=== PATIENT | female | born 1955 | race Caucasian/White ===

== ENCOUNTER 2024-02-04 00:52 | Emergency (ER) | payer MEDICARE ==
[2024-02-04] MEDS: ACETAMINOPHEN TAB 500 MG TAB PO STA (01:36)
[2024-02-04] MEDS: IBUPROFEN 600 MG TAB PO STA (01:37)
--- NOTE | 2024-02-04 01:40 | ED ---
General Adult HPI - General Chief complaint: Shortness of Breath Stated complaint: Anxiety Time Seen by Provider: 02/04/24 00:59 Source: patient, EMS, RN notes reviewed, old records reviewed Mode of arrival: EMS Limitations: no limitations - History of Present Illness Initial comments: 69-year-old female presents with cough and dyspnea after be exposed to cigarette smoke. Patient has history of asthma. She states earlier in the day she was exposed to tobacco smoke and this triggered a cough and dyspnea. Patient also reports mild headache which is typical of her usual headaches. Patient was transported by paramedics for evaluation. - Related Data Previous Rx's Medication Instructions Recorded Albuterol Nebulized [Ventolin 2.5 mg INHALATION Q4H #75 ml 02/04/24 Nebulized] Allergies Allergy/AdvReac Type Severity Reaction Status Date / Time naproxen Allergy Anaphylaxis Verified 02/04/24 01:24 Penicillins Allergy Anaphylaxis Verified 02/04/24 01:24 Sulfa (Sulfonamide Allergy Anaphylaxis Verified 02/04/24 01:24 Antibiotics) Review of Systems ROS Statement: Those systems with pertinent positive or pertinent negative responses have been documented in the HPI. ROS Other: All systems not noted in ROS Statement are negative. Past Medical History Past Medical History: Asthma, COPD History of Any Multi-Drug Resistant Organisms: None Reported Past Surgical History: No Surgical Hx Reported Past Psychological History: No Psychological Hx Reported Smoking Status: Never smoker Past Alcohol Use History: None Reported Past Drug Use History: None Reported General Exam Limitations: no limitations General appearance: alert, in no apparent distress Head exam: Present: atraumatic, normocephalic Eye exam: Present: normal appearance, PERRL ENT exam: Present: normal exam Neck exam: Present: normal inspection Respiratory exam: Present: normal lung sounds bilaterally. Absent: respiratory distress, wheezes Cardiovascular Exam: Present: regular rate, normal rhythm GI/Abdominal exam: Present: soft. Absent: distended, tenderness, guarding, rebound Extremities exam: Present: normal inspection, normal capillary refill Neurological exam: Present: alert, oriented X3 Psychiatric exam: Present: normal affect, normal mood Skin exam: Present: warm, dry, intact. Absent: cyanosis, diaphoretic Course Vital Signs 02/04/24 01:16 Temperature 98.6 F Pulse Rate 97 Respiratory 20 Rate Blood Pressure 145/80 O2 Sat by Pulse 97 Oximetry Medical Decision Making - Medical Decision Making Was pt. sent in by a medical professional or institution (CLEMENCIA Cade, FIBRE TECHNOLOGIST, urgent care, hospital, or group home...) When possible be specific @ -No Did you speak to anyone other than the patient for history (EMS, parent, family, police, friend...)? What history was obtained from this source @ -No Did you review nursing and triage notes (agree or disagree)? Why? @ -I reviewed and agree with nursing and triage notes Were old charts reviewed (outside hosp., previous admission, EMS record, old EKG, old radiological studies, urgent care reports/EKG's, group home records)? Report findings @ -No old charts were reviewed Differential Dyspnea: Coronary syndrome, arrhythmia, tamponade, asthma, COPD, pulmonary embolism, pneumonia, pneumothorax, pulmonary effusion, anaphylaxis, diabetic ketoacidosis, flailed chest, pulmonary contusion, diaphragmatic rupture, anemia, neuromuscular, this is not meant to be an all-inclusive list. EKG interpreted by me (3pts min.). @ -As above X-rays interpreted by me (1pt min.). @ -None done CT interpreted by me (1pt min.). @ -None done U/S interpreted by me (1pt. min.). @ -None done What testing was considered but not performed or refused? (CT, X-rays, U/S, labs)? Why? @ -None What meds were considered but not given or refused? Why? @ -None Did you discuss the management of the patient with other professionals (professionals i.e. CLEMENCIA Cade, FIBRE TECHNOLOGIST, lab, RT, psych nurse, dialysis social worker, payroll accountant, teacher, armoured corps officer, case fitter)? Give summary @ -No Was smoking cessation discussed for >3mins.? @ -No Was critical care preformed (if so, how long)? @ -No Were there social determinants of health that impacted care today? How? (Homelessness, low income, unemployed, alcoholism, drug addiction, transportation, low edu. Level, literacy, decrease access to med. care, detention, rehab)? @ -No Was there de-escalation of care discussed even if they declined (Discuss DNR or withdrawal of care, Hospice)? DNR status @ -No What co-morbidities impacted this encounter? (DM, HTN, Smoking, COPD, CAD, Cancer, CVA, ARF, Chemo, Hep., AIDS, mental health diagnosis, sleep apnea, morbid obesity)? @ -History of asthma Was patient admitted / discharged? Hospital course, mention meds given and route , prescriptions, significant lab abnormalities, going to OR and other pertinent info. @ -69-year-old female with cough after being exposed to tobacco . no wheezing on exam. No respiratory distress. No hypoxia. Patient requests breathing treatment which is administered in the emergency department. Patient monitored without clinical change. Patient will continue her albuterol nebulizer at home as needed. Undiagnosed new problem with uncertain prognosis? @ -No Drug Therapy requiring intensive monitoring for toxicity (Heparin, Nitro, Insulin, Cardizem)? @ -No Were any procedures done? @ -No Diagnosis/symptom? @ -[History of asthma Acute, or Chronic, or Acute on Chronic? @ -Chronic Uncomplicated (without systemic symptoms) or Complicated (systemic symptoms)? @ -Default Side effects of treatment? @ -No Exacerbation, Progression, or Severe Exacerbation? @ -No Poses a threat to life or bodily function? How? (Chest pain, USA, [place], pneumonia, PE, COPD, DKA, ARF, appy, cholecystitis, CVA, Diverticulitis, Homicidal, Suicidal, threat to staff... and all critical care pts) @ -Low risk at this time Disposition Clinical Impression: Asthma Disposition: HOME SELF-CARE Condition: Fair Instructions (If sedation given, give patient instructions): Asthma (ED) Prescriptions: Albuterol Nebulized [Ventolin Nebulized] 2.5 mg INHALATION Q4H #75 ml Is patient prescribed a controlled substance at d/c from ED?: No Referrals: None,Stated [Primary Care Provider] - 1-2 days Time of Disposition: 02:20
[2024-02-04] MEDS: IPRATROPIUM-ALBUTEROL 3 ML NEB INHALATION STA (01:55)
[2024-02-04 03:01] VITALS: BP 136/74; PULSE 99; RESP 18; TEMP 98.5
== END 2024-02-04 03:00 | disposition home or self-care (01) ==
LOC: EC 00:52
CPT/HCPCS: 94640; 99285

== ENCOUNTER 2024-02-21 23:46 | Inpatient (IN) | payer MEDICARE, OTHER ==
[2024-02-21 23:58] LABS: Glucose,Whole Blood 382 mg/dL (70-110)
--- NOTE | 2024-02-22 00:11 | ED ---
Altered Mental Status HPI - General Chief Complaint: Fall Stated Complaint: fall Time Seen by Provider: 02/21/24 23:56 Source: EMS, RN notes reviewed, old records reviewed Mode of arrival: EMS Limitations: no limitations - History of Present Illness Initial Comments: This is a 69-year-old female to the ER today for evaluation patient coming in for altered mental status with multiple recent falls and right-sided weakness patient is unable to provide history or complaints MD Complaint: altered mental status, confusion, decreased responsiveness, weakness -: days(s) Severity: moderate Consistency of Symptoms: waxing and waning Context: history of similar presentation Associated Symptoms: malaise, nausea/vomiting, weakness Treatments Prior to Arrival: IV fluid - Related Data Home Medications Medication Instructions Recorded Confirmed Albuterol Inhaler [Ventolin Hfa 1 - 2 puff INHALATION RT-Q4H PRN 02/22/24 02/22/24 Inhaler] Albuterol Nebulized [Ventolin 2.5 mg INHALATION RT-Q4H 02/22/24 02/22/24 Nebulized] Previous Rx's Medication Instructions Recorded Acetaminophen Tab [Tylenol] 325 mg PO Q6H PRN #30 tab 02/25/24 Aspirin 325 mg PO DAILY tab 02/25/24 Atorvastatin [Lipitor] 80 mg PO HS tab 02/25/24 Clopidogrel [Plavix] 75 mg PO DAILY tab 02/25/24 Heparin Sodium,Porcine (1 ml) 5,000 unit SQ Q12HR each 02/25/24 [Heparin Sodium] INSULIN ASPART (NovoLOG) [NovoLOG 0 unit SQ ACHS each 02/25/24 (formulary)] INSULIN ASPART (NovoLOG) [NovoLOG 6 unit SQ AC-TID each 02/25/24 (formulary)] Insulin Detemir (Levemir) [Levemir] 15 unit SQ DAILY@0700 each 02/25/24 metFORMIN HCL [Glucophage] 500 mg PO BID-W/MEALS tab 02/25/24 rOPINIRole HCL [Requip] 0.25 mg PO HS tab 02/25/24 Allergies Allergy/AdvReac Type Severity Reaction Status Date / Time naproxen Allergy Anaphylaxis Verified 02/21/24 23:56 Penicillins Allergy Anaphylaxis Verified 02/21/24 23:56 Sulfa (Sulfonamide Allergy Anaphylaxis Verified 02/21/24 23:56 Antibiotics) Tetracyclines Allergy Rash/Hives Verified 02/21/24 23:56 Review of Systems ROS Statement: Those systems with pertinent positive or pertinent negative responses have been documented in the HPI. ROS Other: All systems not noted in ROS Statement are negative. Past Medical History Past Medical History: Asthma, COPD History of Any Multi-Drug Resistant Organisms: None Reported Past Surgical History: No Surgical Hx Reported Past Psychological History: No Psychological Hx Reported Smoking Status: Never smoker Past Alcohol Use History: None Reported Past Drug Use History: None Reported General Exam - General Exam Comments Initial Comments: NIH 5 Limitations: altered mental status, physical limitation General appearance: alert, in no apparent distress Head exam: Present: atraumatic, normocephalic, normal inspection Eye exam: Present: normal appearance, PERRL, EOMI. Absent: scleral icterus, conjunctival injection, periorbital swelling ENT exam: Present: normal exam, mucous membranes moist Neck exam: Present: normal inspection. Absent: tenderness, meningismus, lymphadenopathy Respiratory exam: Present: normal lung sounds bilaterally. Absent: respiratory distress, wheezes, rales, rhonchi, stridor Cardiovascular Exam: Present: regular rate, normal rhythm, normal heart sounds. Absent: systolic murmur, diastolic murmur, rubs, gallop, clicks GI/Abdominal exam: Present: soft, normal bowel sounds. Absent: distended, tenderness, guarding, rebound, rigid Extremities exam: Present: normal inspection, full ROM, normal capillary refill. Absent: tenderness, pedal edema, joint swelling, calf tenderness Back exam: Present: normal inspection Neurological exam: Present: alert, oriented X3, CN II-XII intact Psychiatric exam: Present: normal affect, normal mood Skin exam: Present: warm, dry, intact, normal color. Absent: rash Course Vital Signs 02/21/24 02/22/24 23:50 03:15 Temperature 98.4 F Pulse Rate 87 91 Respiratory 18 18 Rate Blood Pressure 123/69 136/77 O2 Sat by Pulse 96 97 Oximetry - Reevaluation(s) Reevaluation #1: 02/22/24 00:12 Medical records reviewed Reevaluation #2: 02/22/24 03:01 Patient has persistent right sided deficits arm leg Reevaluation #3: 02/22/24 03:01 Patient informed of results and questions answered Reevaluation #4: Was pt. sent in by a medical professional or institution (CLEMENC[facility] Cade, CHIEF SUSTAINABILITY OFFICER, urgent care, hospital, or [facility]...) When possible be specific @ -no Did you speak to anyone other than the patient for history (EMS, parent, family, police, friend...)? What history was obtained from this source @ -no Did you review nursing and triage notes (agree or disagree)? Why? @ -agree Are old charts reviewed (outside hosp., previous admission, EMS record, old EKG, old radiological studies, urgent care reports/EKG's, [facility] records)? Report findings @ -yes Differential Diagnosis (chest pain, altered mental status, abdominal pain women, abdominal pain men, vaginal bleeding, weakness, fever, dyspnea, syncope, headache, dizziness, GI bleed, back pain, seizure, CVA, palpatations, mental health, musculoskeletal)? @ -prior EKG interpreted by me (3pts min.). @ -yes X-rays interpreted by me (1pt min.). @ -yes negative for acute disease CT interpreted by me (1pt min.). @ -yes positive stenosis vertebral artery U/S interpreted by me (1pt. min.). @ -no What testing was considered but not performed or refused? (CT, X-rays, U/S, labs)? Why? @ -none What meds were considered but not given or refused? Why? @ -none Did you discuss the management of the patient with other professionals (professionals i.e. CLEMENCIA Cade, CHIEF SUSTAINABILITY OFFICER, lab, RT, psych nurse, social work faculty member, side sawyer, teacher, water resources technical officer, pillowcase sewer)? Give summary @ -no Was smoking cessation discussed for >3mins.? @ -no Was critical care preformed (if so, how long)? @ -yes31 Were there social determinants of health that impacted care today? How? (Homelessness, low income, unemployed, alcoholism, drug addiction, transportation, low edu. Level, literacy, decrease access to med. care, half-way, rehab)? @ -none Was there de-escalation of care discussed even if they declined (Discuss DNR or withdrawal of care, Hospice)? DNR status @ -no What co-morbidities impacted this encounter? (DM, HTN, Smoking, COPD, CAD, Cancer, CVA, ARF, Chemo, Hep., AIDS, mental health diagnosis, sleep apnea, morbid obesity)? @ -none Was patient admitted / discharged? Hospital course, mention meds given and route, prescriptions, significant lab abnormalities, going to OR and other pertinent info. @ - 69 female will be admitted for acute CVA likely related to critical stenosis of vertebral artery Discharged Undiagnosed new problem with uncertain prognosis? @ -no Drug Therapy requiring intensive monitoring for toxicity (Heparin, Nitro, Insulin, Cardizem)? @ -no Were any procedures done? @ -no Diagnosis/symptom? @ -CVA Acute, or Chronic, or Acute on Chronic? @ -Acute Uncomplicated (without systemic symptoms) or Complicated (systemic symptoms)? @ -Complicated Side effects of treatment? @ -no Exacerbation, Progression, or Severe Exacerbation? @ -exacerbation Poses a threat to life or bodily function? How? (Chest pain, USA, [place], pneumonia, PE, COPD, DKA, ARF, appy, cholecystitis, CVA, Diverticulitis, Homicidal, Suicidal, threat to staff... and all critical care pts) @ -yes CVA Reevaluation #5: Differential Altered Mental Status: Hypoglycemia, DKA, hypercapnia, ETOH, overdose, CO poisoning, trauma, myxedema coma, HTN encephalopathy, infection, encephalitis, psychosis, intercranial hemorrhage, hepatic encephalopathy, meningitis, CVA, this is not meant to be an all-inclusive list - Consultations Consultation #1: Spoke with admitting physicians who agreed to admit this patient Medical Decision Making - Medical Decision Making 69 female will be admitted for acute CVA likely related to critical stenosis of vertebral artery - Lab Data Result diagrams: 02/24/24 07:24 02/24/24 07:24 Lab Results 02/21/24 02/22/24 02/22/24 Range/Units 23:56 00:15 00:15 WBC 6.4 (3.8-10.6) k/uL RBC 5.56 H (3.80-5.40) m/uL Hgb 15.5 (11.4-16.0) gm/dL Hct 44.2 (34.0-46.0) % MCV 79.5 L (80.0-100.0) fL MCH 27.9 (25.0-35.0) pg MCHC 35.0 (31.0-37.0) g/dL RDW 12.7 (11.5-15.5) % Plt Count 343 (150-450) k/uL MPV 8.4 Neutrophils % 76 % Lymphocytes % 17 % Monocytes % 6 % Eosinophils % 0 % Basophils % 0 % Neutrophils # 4.8 (1.3-7.7) k/uL Lymphocytes # 1.1 (1.0-4.8) k/uL Monocytes # 0.4 (0-1.0) k/uL Eosinophils # 0.0 (0-0.7) k/uL Basophils # 0.0 (0-0.2) k/uL PT 10.2 (10.0-12.5) sec INR 0.9 (<1.2) APTT 23.5 (22.0-30.0) sec Sodium (137-145) mmol/L Potassium (3.5-5.1) mmol/L Chloride (98-107) mmol/L Carbon Dioxide (22-30) mmol/L Anion Gap mmol/L BUN (7-17) mg/dL Creatinine (0.52-1.04) mg/dL Est GFR (CKD-EPI)AfAm (>60 ml/min/1.73 sqM) Est GFR (CKD-EPI)NonAf (>60 ml/min/1.73 sqM) Glucose (74-99) mg/dL POC Glucose (mg/dL) 382 H (70-110) mg/dL POC Glu Early Childhood Education Instructor ALEISHA Rimma Cespedes [address] Glu mg/dL mg/dL Hemoglobin A1c (<=6.0) % Plasma Lactic Acid Ronni (0.7-2.0) mmol/L Calcium (8.4-10.2) mg/dL Phosphorus (2.5-4.5) mg/dL Magnesium (1.6-2.3) mg/dL Total Bilirubin (0.2-1.3) mg/dL AST (14-36) U/L ALT (4-34) U/L Alkaline Phosphatase (38-126) U/L Troponin I (0.000-0.034) ng/mL NT-Pro-B Natriuret Pep pg/mL Total Protein (6.3-8.2) g/dL Albumin (3.5-5.0) g/dL TSH (0.465-4.680) mIU/L 02/22/24 02/22/24 02/22/24 Range/Units 00:15 00:15 00:15 WBC (3.8-10.6) k/uL RBC (3.80-5.40) m/uL Hgb (11.4-16.0) gm/dL Hct (34.0-46.0) % MCV (80.0-100.0) fL MCH (25.0-35.0) pg MCHC (31.0-37.0) g/dL RDW (11.5-15.5) % Plt Count (150-450) k/uL MPV Neutrophils % % Lymphocytes % % Monocytes % % Eosinophils % % Basophils % % Neutrophils # (1.3-7.7) k/uL Lymphocytes # (1.0-4.8) k/uL Monocytes # (0-1.0) k/uL Eosinophils # (0-0.7) k/uL Basophils # (0-0.2) k/uL PT (10.0-12.5) sec INR (<1.2) APTT (22.0-30.0) sec Sodium 136 L (137-145) mmol/L Potassium 3.8 (3.5-5.1) mmol/L Chloride 104 (98-107) mmol/L Carbon Dioxide 25 (22-30) mmol/L Anion Gap 7 mmol/L BUN 10 (7-17) mg/dL Creatinine 0.34 L (0.52-1.04) mg/dL Est GFR (CKD-EPI)AfAm >90 (>60 ml/min/1.73 sqM) Est GFR (CKD-EPI)NonAf >90 (>60 ml/min/1.73 sqM) Glucose 397 H (74-99) mg/dL POC Glucose (mg/dL) (70-110) mg/dL POC Glu Early Childhood Education Instructor ID Estimated Ave Glu mg/dL mg/dL Hemoglobin A1c (<=6.0) % Plasma Lactic Acid Ronni 1.3 (0.7-2.0) mmol/L Calcium 9.5 (8.4-10.2) mg/dL Phosphorus 3.2 (2.5-4.5) mg/dL Magnesium 1.9 (1.6-2.3) mg/dL Total Bilirubin 0.6 (0.2-1.3) mg/dL AST 23 (14-36) U/L ALT 26 (4-34) U/L Alkaline Phosphatase 139 H (38-126) U/L Troponin I <0.012 (0.000-0.034) ng/mL NT-Pro-B Natriuret Pep 45 pg/mL Total Protein 7.2 (6.3-8.2) g/dL Albumin 4.4 (3.5-5.0) g/dL TSH 0.972 (0.465-4.680) mIU/L 02/22/24 Range/Units 00:15 WBC (3.8-10.6) k/uL RBC (3.80-5.40) m/uL Hgb (11.4-16.0) gm/dL Hct (34.0-46.0) % MCV (80.0-100.0) fL MCH (25.0-35.0) pg MCHC (31.0-37.0) g/dL RDW (11.5-15.5) % Plt Count (150-450) k/uL MPV Neutrophils % % Lymphocytes % % Monocytes % % Eosinophils % % Basophils % % Neutrophils # (1.3-7.7) k/uL Lymphocytes # (1.0-4.8) k/uL Monocytes # (0-1.0) k/uL Eosinophils # (0-0.7) k/uL Basophils # (0-0.2) k/uL PT (10.0-12.5) sec INR (<1.2) APTT (22.0-30.0) sec Sodium (137-145) mmol/L Potassium (3.5-5.1) mmol/L Chloride (98-107) mmol/L Carbon Dioxide (22-30) mmol/L Anion Gap mmol/L BUN (7-17) mg/dL Creatinine (0.52-1.04) mg/dL Est GFR (CKD-EPI)AfAm (>60 ml/min/1.73 sqM) Est GFR (CKD-EPI)NonAf (>60 ml/min/1.73 sqM) Glucose (74-99) mg/dL POC Glucose (mg/dL) (70-110) mg/dL POC Glu Early Childhood Education Instructor ID Estimated Ave Glu mg/dL 401 mg/dL Hemoglobin A1c 15.6 H (<=6.0) % Plasma Lactic Acid Ronni (0.7-2.0) mmol/L Calcium (8.4-10.2) mg/dL Phosphorus (2.5-4.5) mg/dL Magnesium (1.6-2.3) mg/dL Total Bilirubin (0.2-1.3) mg/dL AST (14-36) U/L ALT (4-34) U/L Alkaline Phosphatase (38-126) U/L Troponin I (0.000-0.034) ng/mL NT-Pro-B Natriuret Pep pg/mL Total Protein (6.3-8.2) g/dL Albumin (3.5-5.0) g/dL TSH (0.465-4.680) mIU/L - EKG Data -: EKG Interpreted by Me (EKG is sinus 86 PA 178 QRS 82 QTc 406) - Radiology Data Radiology results: report reviewed (CT brain CT C-spine chest and pelvis x-ray does show positive critical stenosis on CTA), image reviewed Critical Care Time Critical Care Time: Yes Total Critical Care Time: 31 Disposition Clinical Impression: CVA (cerebral vascular accident), Vertebral artery stenosis Disposition: ADMITTED IP TO THIS [facility] Condition: Fair Is patient prescribed a controlled substance at d/c from ED?: No Time of Disposition: 03:00
[2024-02-22] MEDS: SODIUM CHLORIDE 0.9% 500 ML 500 ML IV STA (00:25)
[2024-02-22] MEDS: SODIUM CHLORIDE 0.9% 1,000 ML IV STA ×2 (00:25)
[2024-02-22 00:49] LABS: ALT 26 U/L (4-34); AST 23 U/L (14-36); African American GFR (CKD) >90 (>60 ml/min/1.73 sqM); Albumin 4.4 g/dL (3.5-5.0); Alkaline Phosphatase 139 U/L (38-126); Anion Gap 7 mmol/L; Blood Urea Nitrogen 10 mg/dL (7-17); Calcium 9.5 mg/dL (8.4-10.2); Carbon Dioxide 25 mmol/L (22-30); Chloride 104 mmol/L (98-107); Glucose 397 mg/dL (74-99); Magnesium 1.9 mg/dL (1.6-2.3); Non-African American GFR(CKD) >90 (>60 ml/min/1.73 sqM); Phosphorus 3.2 mg/dL (2.5-4.5); Potassium 3.8 mmol/L (3.5-5.1); Sodium 136 mmol/L (137-145); Total Bilirubin 0.6 mg/dL (0.2-1.3); Total Protein 7.2 g/dL (6.3-8.2)
[2024-02-22 00:51] LABS: INR 0.9 (<1.2); Partial Thromboplastin Time 23.5 sec (22.0-30.0); Prothrombin Time 10.2 sec (10.0-12.5)
[2024-02-22 00:52] LABS: Basophils % (A) 0 %; Eosinophils % (A) 0 %; HCT 44.2 % (34.0-46.0); HGB 15.5 gm/dL (11.4-16.0); Lymphocytes # (A) 1.1 k/uL (1.0-4.8); Lymphocytes % (A) 17 %; MCH 27.9 pg (25.0-35.0); MCV 79.5 fL (80.0-100.0); Mean Platelet Volume 8.4; Monocytes # (A) 0.4 k/uL (0-1.0); Monocytes % (A) 6 %; Neutrophils # (A) 4.8 k/uL (1.3-7.7); Neutrophils % (A) 76 %; Platelet Count 343 k/uL (150-450); RBC 5.56 m/uL (3.80-5.40); RDW 12.7 % (11.5-15.5); WBC 6.4 k/uL (3.8-10.6)
[2024-02-22 00:57] LABS: NT-Pro-B-Type Natriuretic Pept 45 pg/mL
--- NOTE | 2024-02-22 02:08 | CT ---
EXAM: CT Head Without Intravenous Contrast CLINICAL HISTORY: ITS.REASON CT Reason: ams TECHNIQUE: Axial computed tomography images of the head/brain without intravenous contrast. CTDI is 30.67 mGy and DLP is 504 mGy-cm. This CT exam was performed using one or more of the following dose reduction techniques: automated exposure control, adjustment of the mA and/or kV according to patient size, and/or use of iterative reconstruction technique. COMPARISON: No relevant prior studies available. FINDINGS: Brain: No hemorrhage or mass effect. Ventricles: No hydrocephalus. Bones/joints: Unremarkable. Soft tissues: Unremarkable. Sinuses: No air fluid level. Mastoid air cells: Clear. IMPRESSION: No acute hemorrhage, hydrocephalus, or mass effect.
--- NOTE | 2024-02-22 02:21 | CT ---
EXAM: CT Angiography Head With Intravenous Contrast CLINICAL HISTORY: ITS.REASON CT Reason: ams TECHNIQUE: Axial computed tomographic angiography images of the head with intravenous contrast. CTDI is 30.67 mGy and DLP is 504 mGy-cm. This CT exam was performed using one or more of the following dose reduction techniques: automated exposure control, adjustment of the mA and/or kV according to patient size, and/or use of iterative reconstruction technique. MIP reconstructed images were created and reviewed. COMPARISON: No relevant prior studies available. FINDINGS: Right internal carotid artery: No significant stenosis. No aneurysm. Right anterior cerebral artery: No significant stenosis. No aneurysm. Right middle cerebral artery: No significant stenosis. No aneurysm. Right posterior cerebral artery: Occluded right proximal DIRECTOR OF SAFETY. No aneurysm. Right vertebral artery: Unremarkable. Left internal carotid artery: Moderate left ICA stenosis. 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 Left anterior cerebral artery: No significant stenosis. No aneurysm. Left middle cerebral artery: Moderate stenosis left distal DIRECTOR OF SAFETY No aneurysm. Left posterior cerebral artery: No significant stenosis. No aneurysm. Left vertebral artery: Unremarkable. Basilar artery: No significant stenosis. No aneurysm. IMPRESSION: 1. Occluded right proximal DIRECTOR OF SAFETY. Reconstitution of flow. 2. Moderate stenosis left distal DIRECTOR OF SAFETY 3. Moderate left ICA stenosis 4. 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 EXAM: CT Angiography Neck With Intravenous Contrast CLINICAL HISTORY: ITS.REASON CT Reason: ams TECHNIQUE: Routine carotid CT angiography protocol was performed with intravenous contrast. NASCET criteria using the distal ICAs for comparison were used for evaluation of stenoses. CTDI is 30.67 mGy and DLP is 504 mGy-cm. This CT exam was performed using one or more of the following dose reduction techniques: automated exposure control, adjustment of the mA and/or kV according to patient size, and/or use of iterative reconstruction technique. MIP reconstructed images were created and reviewed. COMPARISON: None. FINDINGS: VASCULATURE: Right common carotid artery: No significant stenosis. No dissection. Right internal carotid artery: No significant stenosis. No dissection. Right vertebral artery: Partially occluded or critically stenosed right intradural vertebral artery and multiple points. Left common carotid artery: No significant stenosis. No dissection. Left internal carotid artery: No significant stenosis. No dissection. Left vertebral artery: No significant stenosis. No dissection. NECK: Lung apices: Clear. CAROTID STENOSIS REFERENCE USING NASCET CRITERIA: % ICA stenosis = (1 - narrowest ICA diameter/diameter of distal cervical ICA) x 100. Mild - <50% stenosis. Moderate - 50-69% stenosis. Severe - 70-94% stenosis. Near occlusion - 95-99% stenosis. Occluded - 100% stenosis. IMPRESSION: Partially occluded or critically stenosed right intradural vertebral artery and multiple points. <MYCVCSECTION> Communications: 02/22/24 02:46 Verify Receipt Verified receipt with alexis fonseca for Dr. Alvarez on 02/21 02:46 (-04:00)
--- NOTE | 2024-02-22 02:39 | XR ---
EXAM: XR Chest, 1 View CLINICAL HISTORY: ITS.REASON XR Reason: ams TECHNIQUE: Frontal view of the chest. COMPARISON: No previous studies. FINDINGS: Lungs: Unremarkable. No consolidative changes or pleural effusions. Pleural space: See above. Heart: Cardiomegaly. Mediastinum: Possible small hiatal hernia. Bones/joints: Osseous structures and soft tissues are unremarkable. No acute fracture. IMPRESSION: 1. Cardiomegaly. 2. Possible small hiatal hernia.
--- NOTE | 2024-02-22 02:40 | XR ---
EXAM: XR Pelvis, 1 or 2 Views CLINICAL HISTORY: ITS.REASON XR Reason: ams TECHNIQUE: Frontal view of the pelvis. COMPARISON: No previous studies. FINDINGS: Bones/joints: Mild to moderate osteoarthritic changes about the hip joints. The bony pelvis is unremarkable. No acute fracture or dislocation. Soft tissues: Unremarkable. Other findings: Contrast material is noted within both ureters. IMPRESSION: 1. No acute fracture or dislocation about the bony pelvis. 2. 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
[2024-02-22] MEDS: MORPHINE SULFATE 2 MG/ML SYRINGE IVP STA (02:47)
[2024-02-22] MEDS: ACETAMINOPHEN TAB 325 MG TAB PO STA (03:33)
[2024-02-22] MEDS: ASPIRIN 325 MG TAB PO STA (03:34)
--- NOTE | 2024-02-22 09:04 | P.HPIM ---
History of Present Illness This is a pleasant 69 years old female with no significant past medical history who presents yesterday because of right-sided weakness, patient says she was sitting in her chair, she could not get up the whole day. Patient states that she peed on herself for time because of that. This morning she is awake alert oriented, her speech is lightly slurred Patient complains also from both legs were jumping at night but this been going on for a while Patient yesterday also felt some dizziness when trying to get up, she was bumping on the [place] when she was trying to walk Patient complains from right leg and arm weakness today but no headache or dizziness currently She denies GI/ symptoms. No chest pain dyspnea or coughing She denies smoking alcohol or illicit drugs Patient states she has no PCP. Patient hemodynamically stable Unremarkable CBC, BMP, liver enzymes, INR, troponin, urine analysis CT of the brain is negative for acute process CTA of the head and neck showing right vertebral artery partially occluded or critically stenosed at multiple levels. Pelvic x-ray is negative for fracture or dislocation Chest x-ray is negative for acute process EKG showing sinus rhythm at [address]-T changes TSH 0.9. Patient currently on normal saline 100 mL/h Review of Systems Review of systems CONSTITUTIONAL: No fever, no malaise, no fatigue. HEENT: No recent visual problems or hearing problems. Denied any sore throat. CARDIOVASCULAR: No orthopnea, PND, no palpitations, no syncope. PULMONARY: No shortness of breath, no cough, no hemoptysis. GASTROINTESTINAL: No diarrhea, no nausea, no vomiting, no abdominal pain. Normoactive bowel sounds. NEUROLOGICAL: No headaches, no weakness, no numbness. HEMATOLOGICAL: Denies any bleeding or petechiae. GENITOURINARY: Denies any burning micturition, frequency, or urgency. MUSCULOSKELETAL/RHEUMATOLOGICAL: Denies any joint pain, swelling, or any muscle pain. ENDOCRINE: Denies any polyuria or polydipsia. Past Medical History Past Medical History: Asthma, COPD History of Any Multi-Drug Resistant Organisms: None Reported Past Surgical History: No Surgical Hx Reported Past Psychological History: No Psychological Hx Reported Smoking Status: Never smoker Past Alcohol Use History: None Reported Past Drug Use History: None Reported Medications and Allergies Home Medications Medication Instructions Recorded Confirmed Type Albuterol Inhaler [Ventolin Hfa 1 - 2 puff INHALATION Q4HR PRN #1 02/04/24 Rx Inhaler] each Albuterol Nebulized [Ventolin 2.5 mg INHALATION Q4H #75 ml 02/04/24 Rx Nebulized] Allergies Allergy/AdvReac Type Severity Reaction Status Date / Time naproxen Allergy Anaphylaxis Verified 02/21/24 23:56 Penicillins Allergy Anaphylaxis Verified 02/21/24 23:56 Sulfa (Sulfonamide Allergy Anaphylaxis Verified 02/21/24 23:56 Antibiotics) Tetracyclines Allergy Rash/Hives Verified 02/21/24 23:56 Physical Exam Vitals: Vital Signs Temp Pulse Pulse Resp BP BP Pulse Ox 02/22/24 08:00 98.2 F 87 16 133/71 96 02/22/24 04:00 98.1 F 136 H 16 97 02/22/24 03:15 91 18 136/77 97 02/21/24 23:50 98.4 F 87 18 123/69 96 Intake and Output 02/21/24 02/22/24 02/22/24 22:59 06:59 14:59 Intake Total 540 Output Total 600 Balance -60 Intake: Oral 540 Output: Urine 600 Other: Voiding Method External Catheter Weight 61.235 kg GENERAL: The patient is alert and oriented x3, not in any acute distress. Well developed, well nourished. HEENT: Pupils are round and equally reacting to light. EOMI. No scleral icterus. No conjunctival pallor. Normocephalic, atraumatic. No pharyngeal erythema. No thyromegaly. CARDIOVASCULAR: S1 and S2 present. No murmurs, rubs, or gallops. PULMONARY: Chest is clear to auscultation, no wheezing , no crackles. ABDOMEN: Soft, nontender, nondistended, normoactive bowel sounds. No palpable organomegaly. MUSCULOSKELETAL: No joint swelling or deformity. EXTREMITIES: No cyanosis, clubbing, or pedal edema. -NEUROLOGICAL: cranial nerves are grossly intact, has right hemiplegia SKIN: No rashes. no petechiae. Results CBC & Chem 7: 02/22/24 00:15 02/22/24 00:15 Labs: Abnormal Lab Results - Last 24 Hours (Table) 02/21/24 02/22/24 02/22/24 Range/Units 23:56 00:15 00:15 RBC 5.56 H (3.80-5.40) m/uL MCV 79.5 L (80.0-100.0) fL Sodium 136 L (137-145) mmol/L Creatinine 0.34 L (0.52-1.04) mg/dL Glucose 397 H (74-99) mg/dL POC Glucose (mg/dL) 382 H (70-110) mg/dL Alkaline Phosphatase 139 H (38-126) U/L Thrombosis Risk Factor Assmnt - Choose All That Apply Any of the Below Risk Factors Present?: No Other Risk Factors: Yes Each Risk Factor Represents 2 Points: Age 61-74 years Other congenital or acquired thrombophilia - If yes, enter type in comment: No Thrombosis Risk Factor Assessment Total Risk Factor Score: 2 Thrombosis Risk Factor Assessment Level: Low Risk Assessment and Plan Assessment: Acute stroke with right hemiparesis and left facial deviation Fall at home secondary to above Stenosis right vertebral artery Asthma/COPD, currently not an active issue Plan: Continue with aspirin Continue with gentle hydration Monitor vitals and labs Patient remained benefit from PMR consult Neurology consult Labs and medication were reviewed.. Continue same treatment. Continue with symptomatic treatment. Resume home medication. Monitor labs and vitals. DVT and GI prophylaxis. Further recommendations as per clinical course of the patient DVT prophylaxis: Subcutaneous heparin GI Prophylaxis: Pepcid PT/OT: Pending Prognosis is guarded
[2024-02-22] MEDS: FAMOTIDINE 20 MG/2 ML VIAL IV SCH (09:47)
[2024-02-22] MEDS: HEPARIN SODIUM,PORCINE 5,000 UNIT/ML 1 ML VIAL SQ SCH (09:47)
[2024-02-22] MEDS: SODIUM CHLORIDE 0.9% 1,000 ML IV SCH (11:30)
--- NOTE | 2024-02-22 12:45 | P.CNNES ---
History of Present Illness Consult date: 02/22/24 Requesting physician: Wilmer Smith Reason for Consult: cva History of Present Illness: This is a 69-year-old woman who present emergency department because of recurrent falls. She stated that yesterday she had multiple falls. Upon further questioning she stated that she had right-sided weakness. She is not a great historian and at times she seems a bit tangential.. She states she lives by herself. Denies any loss of consciousness with the falls. Seems that she had 4 falls yesterday. Unsure exact timeframe she had these basically right- sided weakness. She denies any visual disturbances. Denies any history of stroke in the past. Denies any A-fib. Denies being on any antiplatelets. Denies tobacco use, illicit drug use or alcohol use. ED physician Dr. Greg Vang he mentioned that the patient had persistent right sided deficit and he ordered the CT CT angiography and the physician did write in his notes that the patient has critical stenosis of vertebral artery and unsure if if he spoke with the stroke attending but stated in his note patient has acute CVA related to critical stenosis of vertebral artery Some of the workup during this hospital visit consisted of: POC glucose is 382. TSH is 0.972. I reviewed the rest of the lab workup. CT of the head is reported as no acute hemorrhage, hydrocephalus or mass effect. I personally reviewed the CT and feel patient has hypodensity over the left occipital region this seems to be chronic. CT angiography of the head and neck is reported as occluded right proximal SAND CARRIER. Reconstitution of flow. Moderate stenosis of the left distal SAND CARRIER. Moderate left ICA stenosis. 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 Partially occluded or critically stenosed right intradural vertebral artery multiple points. Review of Systems limited but positive and negative as per HPI. Past Medical History Past Medical History: Asthma, COPD History of Any Multi-Drug Resistant Organisms: None Reported Past Surgical History: No Surgical Hx Reported Past Psychological History: No Psychological Hx Reported Smoking Status: Never smoker Past Alcohol Use History: None Reported Past Drug Use History: None Reported Medications and Allergies Home Medications Medication Instructions Recorded Confirmed Type Albuterol Inhaler [Ventolin Hfa 1 - 2 puff INHALATION RT-Q4H PRN 02/22/24 02/22/24 History Inhaler] Albuterol Nebulized [Ventolin 2.5 mg INHALATION RT-Q4H 02/22/24 02/22/24 History Nebulized] Azithromycin [Zithromax Z Pack] See Taper PO DIRECTED 02/22/24 02/22/24 History Allergies Allergy/AdvReac Type Severity Reaction Status Date / Time naproxen Allergy Anaphylaxis Verified 02/21/24 23:56 Penicillins Allergy Anaphylaxis Verified 02/21/24 23:56 Sulfa (Sulfonamide Allergy Anaphylaxis Verified 02/21/24 23:56 Antibiotics) Tetracyclines Allergy Rash/Hives Verified 02/21/24 23:56 Physical Examination - Vital Signs Vital Signs: Vital Signs Temp Pulse Pulse Resp BP BP Pulse Ox 02/22/24 08:00 98.2 F 87 16 133/71 96 02/22/24 04:00 98.1 F 136 H 16 97 02/22/24 03:15 91 18 136/77 97 02/21/24 23:50 98.4 F 87 18 123/69 96 Intake and Output 02/21/24 02/22/24 02/22/24 22:59 06:59 14:59 Intake Total 540 Output Total 600 Balance -60 Intake: Oral 540 Output: Urine 600 Other: Voiding Method External Catheter External Catheter # Voids 1 Weight 61.235 kg GENERAL: The patient is lying in bed and is not in acute distress. NEUROLOGICAL: Higher mental function: The patient is mildy drowsy but is awakeable to voice. Is oriented to self, stated she was in the hospital and correctly stated current year. She at time is tangential and has random speech. No expressive aphasia. Cranial nerves: The pupils are round, equal and reactive to light and accommodation. Visual deluna are full to confrontation throughout. Extraocular movement is intact no nystagmus is noted. Facial sensation is normal to touch throughout. The facial strength is right lower weakness. Hearing is normal bilaterally to hand rub. Tongue is midline and moved [id number] without any difficulty. Has positive dysarthria. Motor: The strength is right proximal upper extremity is 0/5, right elbow flexio n is 2-3 and hand mobility manager is 1-2. Right lower is 2-3 (more 2). Left is 5/5. Normal bulk. Decrease tone over the right. Cerebellum: Normal finger to nose over the left but weak on the right. Sensation: Sensation is decreased to touch over the right to touch. Reflexes (right/left): brisk over the right and normal on the left. Plantars are mute bilaterally. Results - Laboratory Findings CBC and BMP: 02/22/24 00:15 02/22/24 00:15 Abnormal Lab Findings: Abnormal Labs 02/21/24 02/22/24 02/22/24 23:56 00:15 00:15 RBC 5.56 H MCV 79.5 L Sodium 136 L Creatinine 0.34 L Glucose 397 H POC Glucose (mg/dL) 382 H Alkaline Phosphatase 139 H Assessment and Plan Assessment: This is a 69-year-old woman who present emergency department because of multiple falls and she was found to have right sided weakness, right facial droop and numbness on the right side. Acute ischemic stroke and she has right hemiparesis, decreased numbness over the right side, right facial droop, dysarthria. CT of the head I feel the patient has appears left old occipital. On CT angiography she has occluded right proximal SAND CARRIER, moderate stenosis of the left distal SAND CARRIER, moderate left ICA stenosis as well as partially occluded stenosis of the right vertebral artery. Unsure time frame but I assume outside the window and risk outweigh the benefit. 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 Falls due to recent stroke Underlying history of asthma and COPD Plan: I ordered MRI of the brain. Patient will was started on aspirin 325 daily by the ED physician. Prior to this patient was not on any antiplatelet. I also added Plavix 75 mg daily with a loading dose of 300 mg once. Patient is on Lipitor 80 mg nightly that was started by the ED physician 2D echo lipid panel is ordered and is pending. I ordered HbA1c. Routine EEG ordered because of her confusion but I think likely her confusion is because of her recent stroke. Continue neurochecks Cardiac monitoring PT OT and AFFILIATE MARKETING SPECIALIST are consulted Permissive hypertension for an additional 24 hours. Defer the rest of the medical management to primary team. For DVT prophylaxis the patient is on subcu heparin. Next Thank you for the consultation. Dr. Brothers will resume neurology service tomorrow AM Time with Patient: Greater than 30
[2024-02-22] MEDS ORDERED: DEXTROSE 50% SYRINGE 50 ML IVP PRN ×2 (13:31)
[2024-02-22] MEDS: CLOPIDOGREL 75 MG TAB PO STA (13:52)
[2024-02-22 16:20] LABS: Appearance,Urine Cloudy (Clear); Bacteria,Urine Rare /hpf; Bilirubin,Urine Negative (Negative); Blood,Urine Negative (Negative); Color,Urine Colorless; Glucose,Urine (UA) 4+ (Negative); Leukocyte Esterase,Urine Moderate (Negative); Mucus,Urine Rare /hpf; Nitrite,Urine Negative (Negative); Protein,Urine Negative (Negative); RBC,Urine 2 /hpf (0-5); Specific Gravity,Urine 1.019 (1.001-1.035); Squamous Epithelial Cell,Urine <1 /hpf (0-4); Urobilinogen,Urine <2.0 mg/dL (<2.0); WBC,Urine 50 /hpf (0-5)
[2024-02-22 16:30] LABS: Ketones,Urine 3+ (Negative)
[2024-02-22 16:36] LABS: Glucose,Whole Blood 242 mg/dL (70-110)
[2024-02-22] MEDS: INSULIN ASPART (NovoLOG) 100 UNIT/ML VIAL SQ SCH (17:46)
--- NOTE | 2024-02-22 19:11 | XR ---
EXAMINATION TYPE: XR orbit pre-MRI foreign body DATE OF EXAM: 02/22/2024 COMPARISON: None HISTORY: Pre-MRI orbit TECHNIQUE: Orbits are examined in 3 projections FINDINGS: There is a radiopaque foreign body over the left orbit of uncertain etiology. Additional ev aluation is recommended. This may be external to the patient. This may be posterior as this is not id entified on the lateral projection. IMPRESSION: 1. Patient is NOT cleared for MRI. Please see above discussion [facility], Workstation: [id number], 02/22/2024 7:08 PM
[2024-02-22 20:09] LABS: Glucose,Whole Blood 332 mg/dL (70-110)
[2024-02-22] MEDS: ATORVASTATIN 80 MG TAB PO SCH (21:24)
[2024-02-22] MEDS: HYDROcodone/APAP 5-325MG 1 EACH TAB PO PRN (21:41)
[2024-02-23 05:50] LABS: Glucose,Whole Blood 402 mg/dL (70-110)
[2024-02-23] MEDS: CLOPIDOGREL 75 MG TAB PO SCH (08:27)
[2024-02-23] MEDS: ASPIRIN 325 MG TAB PO SCH (08:28)
--- NOTE | 2024-02-23 08:28 | P.PN ---
Subjective This is a pleasant 69 years old female with no significant past medical history who presents yesterday because of right-sided weakness, patient says she was sitting in her chair, she could not get up the whole day. Patient states that she peed on herself for time because of that. This morning she is awake alert oriented, her speech is lightly slurred Patient complains also from both legs were jumping at night but this been going on for a while Patient yesterday also felt some dizziness when trying to get up, she was bumping on the [place] when she was trying to walk Patient complains from right leg and arm weakness today but no headache or d izziness currently She denies GI/ symptoms. No chest pain dyspnea or coughing She denies smoking alcohol or illicit drugs Patient states she has no PCP. Patient hemodynamically stable Unremarkable CBC, BMP, liver enzymes, INR, troponin, urine analysis CT of the brain is negative for acute process CTA of the head and neck showing right vertebral artery partially occluded or critically stenosed at multiple levels. Pelvic x-ray is negative for fracture or dislocation Chest x-ray is negative for acute process EKG showing sinus rhythm at [address]-T changes TSH 0.9. Patient currently on normal saline 100 mL/h 02/22 Patient still with severe right hemiplegia and, no other new complaint Her hemoglobin A1c is 15%, she was not on diabetes medicine at home. We started her on Levemir 5 units and 3 units of NovoLog with meals, also we put diabetic diet and nutrition consult PHYSICAL LABORATORY ASSISTANT, PT/OT are pending Neurologist recommended MRI of the brain which could not be obtained because of possible foreign body on the left orbit, further evaluation is requested. Ophthalmology consult EEG and echocardiogram are pending Currently patient on aspirin and Plavix added by an neurologist. Review of systems CONSTITUTIONAL: No fever, no malaise, no fatigue. HEENT: No recent visual problems or hearing problems. Denied any sore throat. CARDIOVASCULAR: No orthopnea, PND, no palpitations, no syncope. PULMONARY: No shortness of breath, no cough, no hemoptysis. HEMATOLOGICAL: Denies any bleeding or petechiae. GENITOURINARY: Denies any burning micturition, frequency, or urgency. MUSCULOSKELETAL/RHEUMATOLOGICAL: Denies any joint pain, swelling, or any muscle pain. ENDOCRINE: Denies any polyuria or polydipsia. Active Medications Generic Name Dose Route Start Last Admin Trade Name Freq PRN Reason Stop Dose Admin Hydrocodone Bitart/Acetaminophen 1 each 02/22/24 11:09 02/22/24 21:41 Hydrocodone/Apap 5-325mg 1 Each Tab PO 1 each Q6HR PRN Administration Pain Aspirin 325 mg 02/23/24 09:00 Aspirin 325 Mg Tab PO DAILY BHARATH Atorvastatin Calcium 80 mg 02/22/24 21:00 02/22/24 21:24 Atorvastatin 80 Mg Tab PO 80 mg HS BHARATH Administration Clopidogrel Bisulfate 75 mg 02/23/24 09:00 Clopidogrel 75 Mg Tab PO DAILY BHARATH Dextrose/Water 25 ml 02/22/24 13:31 Dextrose 50% Syringe 50 Ml IVP PER PROTOCOL PRN Hypoglycemia Protocol Dextrose/Water 50 ml 02/22/24 13:31 Dextrose 50% Syringe 50 Ml IVP PER PROTOCOL PRN Hypoglycemia Protocol Famotidine 20 mg 02/22/24 09:00 02/22/24 21:24 Famotidine 20 Mg/2 Ml Vial IV 20 mg Q12HR BHARATH Administration Heparin Sodium (Porcine) 5,000 unit 02/22/24 09:00 02/22/24 21:24 Heparin Sodium,Porcine 5,000 Unit/Ml 1 Ml Vial SQ 5,000 unit Q12HR BHARATH Administration Sodium Chloride 1,000 mls @ 100 mls/hr 02/22/24 03:00 02/22/24 21:23 Saline 0.9% IV 100 mls/hr .Q10H BHARATH Administration Insulin Aspart 0 unit 02/22/24 17:30 02/23/24 06:49 Insulin Aspart (Novolog) 100 Unit/Ml Vial SQ 8 unit ACHS BHARATH Administration Protocol Insulin Aspart 3 unit 02/23/24 12:30 Insulin Aspart (Novolog) 100 Unit/Ml Vial 0.05 unit/kg (3 unit) SQ AC-TID BHARATH Insulin Detemir 5 unit 02/23/24 09:00 Insulin Detemir (Levemir) 100 Unit/Ml Syr SQ DAILY@0700 BHARATH Ropinirole HCl 0.25 mg 02/22/24 21:00 02/22/24 21:24 Ropinirole Hcl 0.25 Mg Tab PO 0.25 mg HS BHARATH Administration Objective - Vital Signs Vital signs: Vital Signs Temp 97.9 F 02/23/24 04:00 Pulse 87 02/23/24 04:00 Resp 16 02/23/24 04:00 BP 152/73 02/23/24 04:00 Pulse Ox 96 02/23/24 04:00 FiO2 Intake & Output 02/22/24 02/23/24 02/23/24 18:59 06:59 18:59 Intake Total 10 Output Total 600 Balance -590 Weight 57 kg Intake: IV 10 Invasive Line 2 10 Oral 0 Output: Urine 600 Other: Voiding Method External Catheter External Catheter # Voids 2 - Exam GENERAL: The patient is alert and oriented x3, not in any acute distress. Well developed, well nourished. HEENT: Pupils are round and equally reacting to light. EOMI. No scleral icterus. No conjunctival pallor. Normocephalic, atraumatic. No pharyngeal erythema. No thyromegaly. CARDIOVASCULAR: S1 and S2 present. No murmurs, rubs, or gallops. PULMONARY: Chest is clear to auscultation, no wheezing , no crackles. ABDOMEN: Soft, nontender, nondistended, normoactive bowel sounds. No palpable organomegaly. MUSCULOSKELETAL: No joint swelling or deformity. EXTREMITIES: No cyanosis, clubbing, or pedal edema. -NEUROLOGICAL: Left facial deviation, severe right hemiplegia SKIN: No rashes. no petechiae. - Labs CBC & Chem 7: 02/22/24 00:15 02/22/24 00:15 Labs: Abnormal Lab Results - Last 24 Hours (Table) 02/22/24 02/22/24 02/22/24 Range/Units 00:15 15:39 16:35 POC Glucose (mg/dL) 242 H (70-110) mg/dL Hemoglobin A1c 15.6 H (<=6.0) % Urine Appearance Cloudy H (Clear) Urine Glucose (UA) 4+ H (Negative) Urine Ketones 3+ H (Negative) Ur Leukocyte Esterase Moderate H (Negative) Urine WBC 50 H (0-5) /hpf Urine Bacteria Rare H (None) /hpf Urine Mucus Rare H (None) /hpf 02/22/24 02/23/24 Range/Units 20:07 05:49 POC Glucose (mg/dL) 332 H 402 H (70-110) mg/dL Hemoglobin A1c (<=6.0) % Urine Appearance (Clear) Urine Glucose (UA) (Negative) Urine Ketones (Negative) Ur Leukocyte Esterase (Negative) Urine WBC (0-5) /hpf Urine Bacteria (None) /hpf Urine Mucus (None) /hpf Assessment and Plan Assessment: Acute stroke with right hemiparesis and left facial deviation Fall at home secondary to above Send diabetes mellitus Stenosis right vertebral artery Asthma/COPD, currently not an active issue Plan: Continue with aspirin, Plavix per neurologist MRI could not be obtained for left orbital foreign body, ophthalmology team consulted Follow-up EEG and echocardiogram Neurologist on the case Continue with gentle hydration Monitor vitals and labs Patient remained benefit from PMR consult Continue with IV fluid till patient able to tolerate diet Neurology consult Labs and medication were reviewed.. Continue same treatment. Continue with symptomatic treatment. Resume home medication. Monitor labs and vitals. DVT and GI prophylaxis. Further recommendations as per clinical course of the patient DVT prophylaxis: Subcutaneous heparin GI Prophylaxis: Pepcid PT/OT: Pending Prognosis is guarded
[2024-02-23 08:46] LABS: Chol/HDL Ratio 7.76 Ratio; LDL Cholesterol,Calculated 113.4 mg/dL (0.0-131.0)
--- NOTE | 2024-02-23 09:16 | P.CON ---
Consult Note - . Consult date: 02/23/24 Assessment/Plan:: Asked to see patient for orbital artifact on operations intelligence superintendent film for MRI studies. Asked and confirmed with radiology that the object on plane film and not on CT of the same area is most likely related to the hair bun, as related to me, by Dr. Muñoz. I will be happy to see patient for consultation at a later time.
[2024-02-23 11:42] LABS: Glucose,Whole Blood 295 mg/dL (70-110)
[2024-02-23 12:27] VITALS: BMI 22.9
[2024-02-23] MEDS: INSULIN ASPART (NovoLOG) 100 UNIT/ML VIAL SQ SCH (12:31)
[2024-02-23] MEDS: INSULIN DETEMIR (LEVEMIR) 100 UNIT/ML SYR SQ SCH (12:31)
--- NOTE | 2024-02-23 15:01 | CA ---
Transthoracic Echo Report Name: Jackeline Acevedo Age: 69 Gender: F : 1955 Exam Date: 02/23/2024 09:43 Exam Location: [place] [facility] Ht (in): 62 Wt (lb): 135 Ordering Physician: Wilmer Smith DO Attending/Referring Phys: [id number], Luis Layout Technician Vanda Connors RDCS Procedure CPT: Indications: Thrombus Cardiac Hx: Technical Quality: Good Contrast 1: Total Dose (mL): Contrast 2: Total Dose (mL): MEASUREMENTS (Male / Female) Normal Values 2D ECHO LV Diastolic Diameter PLAX 4.4 cm 4.2 - 5.9 / 3.9 - 5.3 cm LV Systolic Diameter PLAX 2.7 cm IVS Diastolic Thickness 1.1 cm 0.6 - 1.0 / 0.6 - 0.9 cm LVPW Diastolic Thickness 1.1 cm 0.6 - 1.0 / 0.6 - 0.9 cm LV Relative Wall Thickness 0.5 RV Internal Dim ED PLAX 2.9 cm LA Systolic Diameter LX 3.5 cm 3.0 - 4.0 / 2.7 - 3.8 cm LV Diastolic Volume MOD 4C 88.8 cm??? LV Systolic Volume MOD 4C 38.2 cm??? LV Ejection Fraction MOD 4C 57.0 % LV Cardiac Index MOD 4C 2550.4 cm???/min???m??? LV Diastolic Length 4C 7.7 cm LV Systolic Length 4C 6.0 cm LV Diastolic Volume MOD 2C 50.3 cm??? LV Systolic Volume MOD 2C 18.4 cm??? LV Ejection Fraction MOD 2C 63.5 % LV Cardiac Index MOD 2C 1610.5 cm???/min???m??? LV Diastolic Length 2C 7.8 cm LV Systolic Length 2C 6.7 cm LA Volume 29.6 cm??? 18 - 58 / 22 - 52 cm??? LA Volume Index 18.0 cm???/m??? 16 - 28 cm???/m??? M-MODE Aortic Root Diameter MM 3.2 cm AV Cusp Separation MM 1.7 cm DOPPLER AV Peak Velocity 155.1 cm/s AV Peak Gradient 9.6 mmHg MV Area PHT 2.4 cm??? Mitral E Point Velocity 64.2 cm/s Mitral A Point Velocity 95.5 cm/s Mitral E to A Ratio 0.7 MV Deceleration Time 320.8 ms TR Peak Velocity 207.8 cm/s TR Peak Gradient 17.3 mmHg Right Ventricular Systolic Press 22.3 mmHg FINDINGS Left Ventricle Left ventricular ejection fraction is estimated at 55-60 %. Left ventricular cavity size normal. Mildly increased septal wall thickness. Mildly increased posterior wall thickness. Right Ventricle Normal right ventricular size and function. Right ventricular systolic pressure within normal limits. Right Atrium Normal right atrial size. No right atrial thrombus or mass seen. Left Atrium Normal left atrial size. No left atrial thrombus or mass present. Mitral Valve Structurally normal mitral valve. Mitral annular calcification. No mitral stenosis, regurgitation or prolapse. Aortic Valve Trileaflet aortic valve. No aortic valve stenosis or regurgitation. Tricuspid Valve Structurally normal tricuspid valve. Mild tricuspid regurgitation. Pulmonic Valve Structurally normal pulmonic valve. No pulmonic regurgitation. Pericardium No pericardial or pleural effusion. Aorta Normal size aortic root and proximal ascending aorta. CONCLUSIONS Left ventricular ejection fraction 55-60% Mildly increased left ventricular wall thickness Mild mitral annular calcification Mild tricuspid regurgitation Previewed by: Dr. Imtiaz De Paz DO (Electronically Signed) Final Date: 23 February 2024 15:00
--- NOTE | 2024-02-23 15:28 | P.PN ---
Subjective Progress Note Date: 02/23/24 Patient was initially seen by Dr. Abhinav Harper. Please refer to his note for details. Patient is a 69-year-old right-handed female who presents with right- sided weakness and slurred speech. Patient has complete right hemiplegia. Patient was not taking any antiplatelet medication at home. Patient has newly diagnosed diabetes. Patient at present is sitting comfortably in the recliner. She continues to have right hemiplegia. Patient states her mother has history of dementia. Some of the workup during this hospital visit consisted of: POC glucose is 382. TSH is 0.972. I reviewed the rest of the lab workup. CT of the head is reported as no acute hemorrhage, hydrocephalus or mass effect. I personally reviewed the CT and feel patient has hypodensity over the left oc cipital region this seems to be chronic. CT angiography of the head and neck is reported as occluded right proximal BARREL STRAIGHTENER. Reconstitution of flow. Moderate stenosis of the left distal BARREL STRAIGHTENER. Moderate l eft ICA stenosis. 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 Partially occluded or critically stenosed right intradural vertebral artery multiple points. Objective - Vital Signs Vital signs: Vital Signs Temp 98.4 F 02/23/24 08:20 Pulse 90 02/23/24 14:00 Resp 16 02/23/24 14:00 BP 144/79 02/23/24 11:40 Pulse Ox 98 02/23/24 11:40 FiO2 Intake & Output 02/22/24 02/23/24 02/23/24 18:59 06:59 18:59 Intake Total 10 120 Output Total 600 100 Balance -590 20 Weight 57 kg 57 kg Intake: IV 10 Invasive Line 2 10 Oral 0 120 Output: Urine 600 100 Other: Voiding Method External Catheter External Catheter External Catheter # Voids 2 - Exam Patient is an elderly female, who is laying in the recliner in no acute distress. Patient is alert and awake. Speech is mild to moderate dysarthria but no aphasia. Cranial nerves pupils are equal, round and reacting, visual deluna are full, extraocular muscles are intact. Patient has right facial droop, moderate degree, central type, tongue protrudes to the midline, and she has very weak, 0 right shoulder shrug. On muscle strength testing, patient is completely hemiplegic in the right arm and right leg with no movement. The left side is normal. Sensory to touch produced tingling in the right side of the body. Cerebellar functions can be performed on the right. - Labs CBC & Chem 7: 02/22/24 00:15 02/22/24 00:15 Labs: Abnormal Lab Results - Last 24 Hours (Table) 02/22/24 02/22/24 02/22/24 Range/Units 00:15 15:39 16:35 POC Glucose (mg/dL) 242 H (70-110) mg/dL Hemoglobin A1c 15.6 H (<=6.0) % Triglycerides (0.00-149.00) mg/dL Cholesterol (0.00-200.00) mg/dL VLDL Cholesterol, Calc (5.00-40.00) mg/dL HDL Cholesterol (40.00-60.00) mg/dL Urine Appearance Cloudy H (Clear) Urine Glucose (UA) 4+ H (Negative) Urine Ketones 3+ H (Negative) Ur Leukocyte Esterase Moderate H (Negative) Urine WBC 50 H (0-5) /hpf Urine Bacteria Rare H (None) /hpf Urine Mucus Rare H (None) /hpf 02/22/24 02/23/24 02/23/24 Range/Units 20:07 05:49 06:07 POC Glucose (mg/dL) 332 H 402 H (70-110) mg/dL Hemoglobin A1c (<=6.0) % Triglycerides 400.00 H (0.00-149.00) mg/dL Cholesterol 222.00 H (0.00-200.00) mg/dL VLDL Cholesterol, Calc 80.00 H (5.00-40.00) mg/dL HDL Cholesterol 28.60 L (40.00-60.00) mg/dL Urine Appearance (Clear) Urine Glucose (UA) (Negative) Urine Ketones (Negative) Ur Leukocyte Esterase (Negative) Urine WBC (0-5) /hpf Urine Bacteria (None) /hpf Urine Mucus (None) /hpf 02/23/24 Range/Units 11:40 POC Glucose (mg/dL) 295 H (70-110) mg/dL Hemoglobin A1c (<=6.0) % Triglycerides (0.00-149.00) mg/dL Cholesterol (0.00-200.00) mg/dL VLDL Cholesterol, Calc (5.00-40.00) mg/dL HDL Cholesterol (40.00-60.00) mg/dL Urine Appearance (Clear) Urine Glucose (UA) (Negative) Urine Ketones (Negative) Ur Leukocyte Esterase (Negative) Urine WBC (0-5) /hpf Urine Bacteria (None) /hpf Urine Mucus (None) /hpf Assessment and Plan Assessment: * Acute ischemic stroke with complete right hemiplegia. Patient's current NIH stroke scale is 12 (related to no movement of the right arm, no movement of the right leg, mild to moderate dysarthria, right facial weakness and right sensory disturbance). * Possible left pontine lacunar ischemic stroke. * History of old left occipital lobe infarct. On CT angiography she has occluded right proximal BARREL STRAIGHTENER, moderate stenosis of the left distal BARREL STRAIGHTENER, moderate left ICA stenosis as well as partially occluded stenosis of the right vertebral artery. Unsure time frame but I assume outside the window for TNK and risk outweigh the benefit. 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 * New onset diabetes * Hyperlipidemia * Falls due to recent stroke * Underlying history of asthma and COPD Plan: Patient cannot have MRI of the brain because of presence of some foreign body in the head. Repeat CT head in the morning to evaluate for possible left pontine infarction. Patient probably has a completed stroke, with complete right hemiplegia. Patient will was started on aspirin 325 daily by the ED physician. Prior to is patient was not on any antiplatelet. Dr. Abhinav Harper also added Plavix 75 mg daily with a loading dose of 300 mg once. 2D echo revealed LVEF 55 to 60%. Normal left ventricular cavity size. Mildly increased septal wall thickness. Mildly increased posterior wall thickness. Normal left atrial size. No atrial thrombus. Mild mitral annular calcification. Lipid panel with cholesterol 222, LDL 113, HDL 28 and triglycerides 400. Agree with starting high intensity statins with Lipitor 80 mg. Patient was not on any statins at home. Hemoglobin A1c 15.6. This is suggestive of very poorly controlled diabetes. Recommend optimize control of diabetes to target A1c < 7.0. Await EEG. Continue neurochecks Cardiac monitoring PT OT and AIRFLIGHT ATTENDANTS SUPERVISOR are consulted Permissive hypertension for an additional 24 hours. Defer the rest of the medical management to primary team. Suggest consultation with inpatient rehab. For DVT prophylaxis the patient is on subcu heparin.
[2024-02-23 17:00] LABS: Glucose,Whole Blood 367 mg/dL (70-110)
[2024-02-23 20:12] LABS: Glucose,Whole Blood 378 mg/dL (70-110)
[2024-02-23] MEDS: FAMOTIDINE 20 MG TAB PO SCH (21:04)
--- NOTE | 2024-02-24 02:19 | EEG ---
ELECTROENCEPHALOGRAM REPORT PREAMBLE: This is a 69-year-old female, who was brought to the hospital because of multiple falls. The patient was found to have right hemiparesis. The patient has an acute stroke. CURRENT MEDICATIONS: 1. Aspirin. 2. Lipitor. 3. Plavix. 4. Pepcid. 5. [place]. EEG FINDINGS: This is a 21-channel digital EEG recorded with video component, utilizing 10/20 international system with referential and bipolar montages. The recording starts with the patient being asleep with presence of diffuse moderate to high amplitude mixed theta and some delta slowing, intermixed with some sleep spindles in bihemispheric region. When the patient was more awake, fairly well developed and regulated mixed frequencies of 10 hertz alpha with some theta activity was seen in bihemispheric region. Background seems to be minimally reactive to eye opening or closing. Photic driving response was not seen. No focal or generalized epileptiform activity was seen. IMPRESSION: Abnormal EEG due to presence of background slowing, suggestive of mild encephalopathy. No focal, lateralized, or epileptiform activity was seen. MMODL / IJN: [id number] / [facility] SYSTEMSruthi
[2024-02-24 06:00] LABS: Glucose,Whole Blood 314 mg/dL (70-110)
[2024-02-24 07:48] LABS: Basophils % (A) 0 %; Eosinophils # (A) 0.1 k/uL (0-0.7); Eosinophils % (A) 1 %; HCT 43.7 % (34.0-46.0); HGB 15.2 gm/dL (11.4-16.0); Lymphocytes # (A) 1.1 k/uL (1.0-4.8); Lymphocytes % (A) 12 %; MCHC 34.9 g/dL (31.0-37.0); MCV 80.1 fL (80.0-100.0); Monocytes # (A) 0.4 k/uL (0-1.0); Monocytes % (A) 5 %; Neutrophils # (A) 7.1 k/uL (1.3-7.7); Neutrophils % (A) 81 %; Platelet Count 310 k/uL (150-450); RBC 5.45 m/uL (3.80-5.40); RDW 12.8 % (11.5-15.5); WBC 8.8 k/uL (3.8-10.6)
[2024-02-24 07:51] LABS: African American GFR (CKD) >90 (>60 ml/min/1.73 sqM); Anion Gap 7 mmol/L; Blood Urea Nitrogen 8 mg/dL (7-17); Calcium 8.7 mg/dL (8.4-10.2); Carbon Dioxide 24 mmol/L (22-30); Chloride 103 mmol/L (98-107); Glucose 300 mg/dL (74-99); Non-African American GFR(CKD) >90 (>60 ml/min/1.73 sqM); Potassium 3.7 mmol/L (3.5-5.1); Sodium 134 mmol/L (137-145)
--- NOTE | 2024-02-24 11:00 | P.PN ---
Subjective This is a pleasant 69 years old female with no significant past medical history who presents yesterday because of right-sided weakness, patient says she was sitting in her chair, she could not get up the whole day. Patient states that she peed on herself for time because of that. This morning she is awake alert oriented, her speech is lightly slurred Patient complains also from both legs were jumping at night but this been going on for a while Patient yesterday also felt some dizziness when trying to get up, she was bumping on the [place] when she was trying to walk Patient complains from right leg and arm weakness today but no headache or d izziness currently She denies GI/ symptoms. No chest pain dyspnea or coughing She denies smoking alcohol or illicit drugs Patient states she has no PCP. Patient hemodynamically stable Unremarkable CBC, BMP, liver enzymes, INR, troponin, urine analysis CT of the brain is negative for acute process CTA of the head and neck showing right vertebral artery partially occluded or critically stenosed at multiple levels. Pelvic x-ray is negative for fracture or dislocation Chest x-ray is negative for acute process EKG showing sinus rhythm at [address]-T changes TSH 0.9. Patient currently on normal saline 100 mL/h 02/22 Patient still with severe right hemiplegia and, no other new complaint Her hemoglobin A1c is 15%, she was not on diabetes medicine at home. 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 Ophthalmology consult EEG and echocardiogram are pending Currently patient on aspirin and Plavix added by an neurologist. 02/23 Patient has persistent right hemiplegia No other new complaint but she was choking this morning therefore we are going to order chest x-ray Sugar still elevated we increased her Levemir to 15 units and NovoLog to 6 units with meals Continue close monitoring of sugar Patient will benefit for inpatient rehab upon discharge Ophthalmology note is noted, patient can follow-up with 5-year as an outpatient Possible discharge in 24 to 48 hours Objective - Vital Signs Vital signs: Vital Signs Temp 97.6 F 02/24/24 10:52 Pulse 91 10/15/24 10:52 Resp 16 02/24/24 10:52 BP 137/76 02/24/24 10:52 Pulse Ox 95 02/24/24 10:52 FiO2 Intake & Output 02/23/24 02/24/24 02/24/24 18:59 06:59 18:59 Intake Total 360 0 180 Output Total 700 200 Balance -340 -200 180 Weight 57 kg 56 kg Intake: Oral 360 0 180 Output: Urine 700 200 Other: Voiding Method External Catheter External Catheter # Voids 5 1 # Bowel Movements 1 - Exam GENERAL: The patient is alert and oriented x3, not in any acute distress. Well developed, well nourished. HEENT: Pupils are round and equally reacting to light. EOMI. No scleral icterus. No conjunctival pallor. Normocephalic, atraumatic. No pharyngeal erythema. No thyromegaly. CARDIOVASCULAR: S1 and S2 present. No murmurs, rubs, or gallops. PULMONARY: Chest is clear to auscultation, no wheezing , no crackles. ABDOMEN: Soft, nontender, nondistended, normoactive bowel sounds. No palpable organomegaly. MUSCULOSKELETAL: No joint swelling or deformity. EXTREMITIES: No cyanosis, clubbing, or pedal edema. -NEUROLOGICAL: Left facial deviation, severe right hemiplegia SKIN: No rashes. no petechiae. - Labs CBC & Chem 7: 02/24/24 07:24 02/24/24 07:24 Labs: Abnormal Lab Results - Last 24 Hours (Table) 02/23/24 02/23/24 02/23/24 Range/Units 11:40 16:54 20:10 RBC (3.80-5.40) m/uL Sodium (137-145) mmol/L Creatinine (0.52-1.04) mg/dL Glucose (74-99) mg/dL POC Glucose (mg/dL) 295 H 367 H 378 H (70-110) mg/dL 02/24/24 02/24/24 02/24/24 Range/Units 05:58 07:24 07:24 RBC 5.45 H (3.80-5.40) m/uL Sodium 134 L (137-145) mmol/L Creatinine 0.36 L (0.52-1.04) mg/dL Glucose 300 H (74-99) mg/dL POC Glucose (mg/dL) 314 H (70-110) mg/dL Assessment and Plan Assessment: Acute stroke with right hemiparesis and left facial deviation Fall at home secondary to above Send diabetes mellitus Stenosis right vertebral artery Asthma/COPD, currently not an active issue Plan: Continue with aspirin, Plavix per neurologist MRI could not be obtained for left orbital foreign body, ophthalmology team consulted, this can be done as an outpatient Follow-up EEG and echocardiogram Neurologist on the case Continue with insulin and glucose monitoring Monitor vitals and labs Patient remained benefit from PMR consult Continue with IV flu discontinue IV fluid Neurology consult Labs and medication were reviewed.. Continue same treatment. Continue with symptomatic treatment. Resume home medication. Monitor labs and vitals. DVT and GI prophylaxis. Further recommendations as per clinical course of the patient DVT prophylaxis: Subcutaneous heparin GI Prophylaxis: Pepcid PT/OT: Pending Prognosis is guarded
[2024-02-24 11:15] LABS: Glucose,Whole Blood >600 mg/dL (70-110)
[2024-02-24 11:16] LABS: Glucose,Whole Blood 449 mg/dL (70-110)
--- NOTE | 2024-02-24 11:20 | P.CONS ---
History of Present Illness - Reason for Consult Consult date: 02/24/24 rehab recommendations - Chief Complaint cva - History of Present Illness Ms Acevedo is a 69 y/o right handed female who lives alone in an apartment, unable to clearly identify the name of it and if she has stairs. She mentions stairs but then also mentions an elevator. She reports prior to admission she was independent with mobility and ADLs. She states she does not drive, either takes the bus or family assists. Per records she has sisters. Patient presented to the hospital with complaints of right-sided weakness and inability to get out of her chair. She reports she urinated several times in the chair as she was not able to get up or get help. She is unable to tell me how s he got assistance or how she got to the hospital. Per case management, patient's sister had talked to her a few days prior and that patient did not "sound right" and recommended she got get checked out. Unremarkable CBC, BMP, liver enzymes, INR, troponin, urine analysis. CT of the brain is negative for acute process. CTA of the head and neck showing right vertebral artery partially occluded or critically stenosed at multiple levels. Pelvic x-ray is negative for fracture or dislocation. Chest x-ray is negative for acute process. EKG showing sinus rhythm at [address]-T changes. Patient previously not on diabetic medication, started on insulin at the hospital, hemoglobin A1c is 15%. Neurologist recommended MRI of the brain which could not be obtained because of possible foreign body on the left orbit, further evaluation is requested. Ophthalmology consult EEG and echocardiogram were ordered. Echo with EF 55-60%, EEG with mild encephalopathy. PM&R consulted for rehab recommendations. Patient seen by therapies; max assist with bathing and LB dressing, max assist with grooming, transfers Max assist 1-2 ppl, SUPERVISOR VENDOR QUALITY recommended puree and thin liquids with 1:1 assist. 02/24/24: Patient is sitting up in her bed, tearful at times due to her current status. She denies MCCALL, CP, SOB, and abdominal pain. She reports doubled and blurred vision, unsure which eye or if both affected. She reports history of bilateral leg pain and " jumping". She states she now cannot move the right arm or leg, but the right leg still spasms. She reports a tightness sensation over the right side of her face, arm, and leg. Review of Systems reviewed, as above in HPI Past Medical History Past Medical History: Asthma, COPD History of Any Multi-Drug Resistant Organisms: None Reported Past Surgical History: No Surgical Hx Reported Past Psychological History: No Psychological Hx Reported Smoking Status: Never smoker Past Alcohol Use History: None Reported Past Drug Use History: None Reported Medications and Allergies Home Medications Medication Instructions Recorded Confirmed Type Albuterol Inhaler [Ventolin Hfa 1 - 2 puff INHALATION RT-Q4H PRN 02/22/24 02/22/24 History Inhaler] Albuterol Nebulized [Ventolin 2.5 mg INHALATION RT-Q4H 02/22/24 02/22/24 History Nebulized] Azithromycin [Zithromax Z Pack] See Taper PO DIRECTED 02/22/24 02/22/24 History Allergies Allergy/AdvReac Type Severity Reaction Status Date / Time naproxen Allergy Anaphylaxis Verified 02/21/24 23:56 Penicillins Allergy Anaphylaxis Verified 02/21/24 23:56 Sulfa (Sulfonamide Allergy Anaphylaxis Verified 02/21/24 23:56 Antibiotics) Tetracyclines Allergy Rash/Hives Verified 02/21/24 23:56 Physical Exam Vitals: Vital Signs Temp Pulse Resp BP Pulse Ox 02/24/24 07:31 98.7 F 86 18 136/87 95 02/24/24 04:00 98 F 85 17 145/89 97 02/24/24 02:00 16 02/24/24 00:00 77 16 149/79 97 02/23/24 20:00 98.3 F 90 17 130/76 98 02/23/24 15:20 82 16 134/78 95 02/23/24 14:00 90 16 02/23/24 11:40 90 16 144/79 98 Intake and Output 02/23/24 02/24/24 02/24/24 22:59 06:59 14:59 Intake Total 240 180 Output Total 600 200 Balance -360 -200 180 Intake: Oral 240 180 Output: Urine 600 200 Other: Voiding Method External Catheter External Catheter # Voids 5 1 # Bowel Movements 1 Weight 56 kg General: Well-developed, elderly female, sitting up in bed with HOB elevated, in no acute distress HEENT: NC/AT, external ears intact, hearing intact to conversational speech, EOMI Cardiovascular: B/L calves are supple, nontender, without peripheral edema, no cardiac distress; traffic 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 Neurological: Alert and oriented x 4. Dysarthria, expressive and receptive aphasia Right facial droop, tongue protrudes midline, right facial weakness, decreased sensation over right side of face, absent shoulder shrug on the right MMT: Right hemiparesis- flaccid, left SABD/EE/EF/HG 4+/5, L LE poor participation HF <3/5, L DF 5/5, R DF/EHL fires intermittently Reflexes: UE 2/4, LE 2/4, Right babinski positive, left negative, no clonus Coordination: unable to perform HTS and FTN Skin: Skin intact where visible to head, neck, and bilateral upper and lower extremities EXCEPT: IV Psychiatric: tearful Results CBC & Chem 7: 02/24/24 07:24 02/24/24 07:24 Labs: Abnormal Lab Results - Last 24 Hours (Table) 02/23/24 02/23/24 02/23/24 Range/Units 11:40 16:54 20:10 RBC (3.80-5.40) m/uL Sodium (137-145) mmol/L Creatinine (0.52-1.04) mg/dL Glucose (74-99) mg/dL POC Glucose (mg/dL) 295 H 367 H 378 H (70-110) mg/dL 02/24/24 02/24/24 02/24/24 Range/Units 05:58 07:24 07:24 RBC 5.45 H (3.80-5.40) m/uL Sodium 134 L (137-145) mmol/L Creatinine 0.36 L (0.52-1.04) mg/dL Glucose 300 H (74-99) mg/dL POC Glucose (mg/dL) 314 H (70-110) mg/dL Assessment and Plan Assessment: # right hemiparesis secondary to acute ischemic CVA, dominant side -neurology following -cannot have MRI d/t foreign body -therapies -statin, plavix, asa #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 Recommending IPR for continued rehab, patient able to participate with therapies and motiv ated. Anticipate discharge to [facility] in next 24 hrs if cleared by medical team. Patient seen and examined in coordination with Dr Underwood
--- NOTE | 2024-02-24 11:54 | XR ---
EXAMINATION TYPE: XR chest 1V DATE OF EXAM: 02/24/2024 11:38 AM CLINICAL INDICATION: Female, 69 years old with history of choking; COMPARISON: Chest radiographs from 02/22/2024 TECHNIQUE: XR chest 1V Frontal view of the chest. FINDINGS: Lungs/Pleura: There is no evidence of pleural effusion, focal consolidation, or pneumothorax. Pulmonary vascularity: Unremarkable. Heart/mediastinum: Cardiomediastinal silhouette is unremarkable. Musculoskeletal: No acute osseous pathology. Other findings: None IMPRESSION: No acute cardiopulmonary disease/process. [facility], , 02/24/2024 11:51 AM
[2024-02-24] MEDS: INSULIN ASPART (NovoLOG) 100 UNIT/ML VIAL SQ SCH (12:29)
[2024-02-24] MEDS: INSULIN DETEMIR (LEVEMIR) 100 UNIT/ML SYR SQ ONE (12:57)
--- NOTE | 2024-02-24 15:24 | CDI ---
Documentation Clarification Form Date: 02/24/2024 02:48:11 PM From: Camryn Madrigal RN CCDS Phone: [phone] Admit Date: 02/22/2024 02:58:00 AM Patient Name: Jackeline Aceveod Visit Number: [id number] Discharge Date: ATTENTION: The Clinical Documentation Specialists (CDI) and [facility] Coding Staff appreciate your assistance in clarifying documentation. Please respond to the clarification below the line at the bottom and electronically sign. The CDI & [facility] Coding staff will review the response and follow-up if needed. Please note: Queries are made part of the Legal Health Record. If you have any questions, please contact the author of this message via ITS. Doctor: Sheet Diabetes is documented 02/22. Additional specificity regarding the diabetes diagnosis is requested. History/Risk Factors: 69 year old female presents to the ED with right sided weakness and unable to get out of chair. Her speech is lightly slurred and dizziness. Medical History: Asthma, COPD, right vertebral artery stenosis and HLD. 02/21, HP. Clinical Indicators: 02/20 POC Glucose 382; 02/21 Glucose 397; 02/21 POC Glucose 242; 02/21 POC Glucose 332, 02/22 POC Glucose 402; 02/22 POC Glucose 295; 02/22 POC Glucose 367; 02/22 POC Glucose 378; 02/23 POC Glucose 314; 07/24 POC Glucose 449 02/22, Medicine: Her hemoglobin A1c is 15%, she was not on diabetes medicine at home.We started her on Levemir 5 units and 3 units of NovoLog with meals, also we put diabetic diet and nutrition consult. 02/22, Neurology note: Patient has newly diagnosed diabetes. 02/22, Dietitian Consult: Purpose of nutrition education, priority modifications, nutrition relationship to health/disease. Recommended modifications. Patient accepting consistent CHO diet handout and discussion. Pt not receptive. Treatment: 02/21 Novolog ACHS SQ SS; 02/22 02/23 Levemir 5Units SQ Daily 0700 BHARATH, 02/22 02/23 Novolog 3Unit SQ TID BHARATH; 02/23 Levemir 10Unit SQ x 1; 02/23 Novolog AC TID 6Unit SQ BHARATH; 02/24 Levemir 15Units SQ Daily @0700 BHARATH; 02/21 Dextrose 50% 25ml IVP PER PROTOCOL PRN Hypoglycemia; 02/21 02/21 Dextrose 50% 50ml IVP PER PROTOCOL PRN Hypoglycemia; Dietitian consult with patient Education. Consistent CHO diet and Commercial beverage: Glucerna BID Please clarify the type of diabetes, if known: [ x] Diabetes Type 2 with hyperglycemia [ ] Other, please specify [ ] Unable to Determine (Template Last Revised: July 2020) MTDD
[2024-02-24 16:42] LABS: Glucose,Whole Blood 270 mg/dL (70-110)
[2024-02-24 19:51] LABS: Glucose,Whole Blood 323 mg/dL (70-110)
--- NOTE | 2024-02-24 22:03 | CT ---
EXAMINATION TYPE: CT brain wo con CT DLP: 1125.4 mGycm, Automated exposure control for dose reduction was used. DATE OF EXAM: 02/24/2024 9:47 PM COMPARISON: CT head 02/22/2024. CLINICAL INDICATION:Female, 69 years old with history of Followup CVA, Follow up CVA. TECHNIQUE: Brain: Axial CT images of the brain were obtained with coronal and sagittal reformats created and rev iewed. Contrast used: None. Oral contrast used: None. FINDINGS: Brain: Extra-axial spaces: No abnormal extra-axial fluid collections. Ventricular system: Within normal limits Cerebral parenchyma: No acute intraparenchymal hemorrhage or mass effect. Remote left occipital lobe infarct with encephalomalacia. Stable age-indeterminate infarct involving the left ede, slightly mo re pronounced on the prior study. Scattered areas of hypoattenuation present in the periventricular s ubcortical white matter, likely related to chronic skin small vessel disease. Cerebellum: Unremarkable. Mass effect: No evidence of midline shift. Intracranial vasculature: unremarkable Soft tissues: Normal. Calvarium/osseous structures: No depressed skull fracture. Paranasal sinuses and mastoid air cells: Mild scattered paranasal sinus disease. Visualized orbits: Orbital contents are intact. IMPRESSION: 1. Redemonstrated age-indeterminate infarct involving the left ede, slightly more pronounced than on the prior study from 02/22/2024. Consider follow-up MRI brain without contrast. 2. Stable remote infarct involving the left occipital lobe with encephalomalacia. 3. No intracranial hemorrhage. [facility], , 02/24/2024 10:01 PM
[2024-02-25 05:34] LABS: Glucose,Whole Blood 260 mg/dL (70-110)
[2024-02-25] MEDS: INSULIN DETEMIR (LEVEMIR) 100 UNIT/ML SYR SQ SCH (06:19)
--- NOTE | 2024-02-25 10:29 | P.PN ---
Subjective Progress Note Date: 02/24/24 02/24/2024: Patient was seen for follow-up. Patient is laying in the bed. Complaining of some aching in the right upper arm and shoulder. Continues to be right hemiplegic. 02/23/2024: Patient was initially seen by Dr. Abhinav Harper. Please refer to his note for details. Patient is a 69-year-old right-handed female who presents with right-sided weakness and slurred speech. Patient has complete right hemiplegia. Patient was not taking any antiplatelet medication at home. Patient has newly diagnosed diabetes. Patient at present is sitting comfortably in the recliner. She continues to have right hemiplegia. Patient states her mother has history of dementia. Some of the workup during this hospital visit consisted of: POC glucose is 382. TSH is 0.972. I reviewed the rest of the lab workup. CT of the head is reported as no acute hemorrhage, hydrocephalus or mass effect. I personally reviewed the CT and feel patient has hypodensity over the left occipital region this seems to be chronic. CT angiography of the head and neck is reported as occluded right proximal FEATHER EDGER. Reconstitution of flow. Moderate stenosis of the left distal FEATHER EDGER. Moderate left ICA stenosis. 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 Partially occluded or critically stenosed right intradural vertebral artery multiple points. Objective - Vital Signs Vital signs: Vital Signs Temp 98.4 F 02/24/24 16:00 Pulse 90 02/24/24 16:00 Resp 18 02/24/24 16:00 BP 159/92 02/24/24 16:00 Pulse Ox 96 02/24/24 16:00 FiO2 Intake & Output 02/23/24 02/24/24 02/24/24 18:59 06:59 18:59 Intake Total 360 0 180 Output Total 700 200 800 Balance -340 -200 -620 Weight 57 kg 56 kg Intake: Oral 360 0 180 Output: Urine 700 200 800 Other: Voiding Method External Catheter External Catheter External Catheter # Voids 5 1 # Bowel Movements 1 - Exam Patient is an elderly female, who is laying in the recliner in no acute distress. Patient is alert and awake. Speech is mild to moderate dysarthria but no aphasia. Cranial nerves pupils are equal, round and reacting, visual deluna are full, extraocular muscles are intact. Patient has right facial droop, moderate degree, central type, tongue protrudes to the midline, and she has very weak, 0 right shoulder shrug. On muscle strength testing, patient is completely hemiplegic in the right arm and right leg with no movement. The left side is normal. Sensory to touch produced tingling in the right side of the body. Cerebellar functions can be performed on the right. - Labs CBC & Chem 7: 02/24/24 07:24 02/24/24 07:24 Labs: Abnormal Lab Results - Last 24 Hours (Table) 02/23/24 02/24/24 02/24/24 Range/Units 20:10 05:58 07:24 RBC 5.45 H (3.80-5.40) m/uL Sodium (137-145) mmol/L Creatinine (0.52-1.04) mg/dL Glucose (74-99) mg/dL POC Glucose (mg/dL) 378 H 314 H (70-110) mg/dL 02/24/24 02/24/24 02/24/24 Range/Units 07:24 11:13 11:15 RBC (3.80-5.40) m/uL Sodium 134 L (137-145) mmol/L Creatinine 0.36 L (0.52-1.04) mg/dL Glucose 300 H (74-99) mg/dL POC Glucose (mg/dL) >600 H* 449 H (70-110) mg/dL 02/24/24 Range/Units 16:39 RBC (3.80-5.40) m/uL Sodium (137-145) mmol/L Creatinine (0.52-1.04) mg/dL Glucose (74-99) mg/dL POC Glucose (mg/dL) 270 H (70-110) mg/dL Assessment and Plan Assessment: * Acute left pontine ischemic infarct, likely due to lacunar stroke. Patient has presented with complete right hemiplegia. Patient's current NIH stroke scale is 12 (related to no movement of the right arm, no movement of the right leg, mild to moderate dysarthria, right facial weakness and right sensory disturbance). * History of old left occipital lobe infarct. On CT angiography she has occluded right proximal FEATHER EDGER, moderate stenosis of the left distal FEATHER EDGER, moderate left ICA stenosis as well as partially occluded stenosis of the right vertebral artery. Unsure time frame but I assume outside the window for TNK and risk outweigh the benefit. 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 * New onset diabetes * Hyperlipidemia * Falls due to recent stroke * Underlying history of asthma and COPD Plan: Patient cannot have MRI of the brain because of presence of some foreign body in the head. Repeat CT head today to evaluate for possible left pontine infarction. Await CT head at this time. Patient probably has a completed stroke, with complete right hemiplegia. Patient will was started on aspirin 325 daily by the ED physician. Prior to this patient was not on any antiplatelet. Dr. Abhinav Harper also added Plavix 75 mg daily with a loading dose of 300 mg once. 2D echo revealed LVEF 55 to 60%. Normal left ventricular cavity size. Mildly increased septal wall thickness. Mildly increased posterior wall thickness. Normal left atrial size. No atrial thrombus. Mild mitral annular calcification. Lipid panel with cholesterol 222, LDL 113, HDL 28 and triglycerides 400. Agree with starting high intensity statins with Lipitor 80 mg. Patient was not on any statins at home. Hemoglobin A1c 15.6. This is suggestive of very poorly controlled diabetes. Recommend optimize control of diabetes to target A1c < 7.0. EEG was abnormal due to presence of background slowing, suggestive of mild encephalopathy. No focal, lateralized or epileptiform activity was seen. Continue neurochecks Cardiac monitoring PT OT and PUMP SERVICER SUPERVISOR are consulted Optimize control of blood pressure. Defer the rest of the medical management to primary team. Patient candidate for inpatient rehabilitation. For DVT prophylaxis the patient is on subcu heparin. Addendum: CT head revealed redemonstrated age-indeterminate infarct involving the left ede, slightly more pronounced than the prior study from 02/22/2024. I personally reviewed CT head, and is consistent with an evolving acute to subacute infarct in the left ede. Stable remote infarct involving the left occipital lobe with encephalomalacia. Neurologically clear for transfer to inpatient rehab, when medically cleared.
[2024-02-25 10:48] VITALS: BP 126/77; PULSE 85; RESP 16; TEMP 98.7
--- NOTE | 2024-02-25 11:03 | P.DS ---
Providers Date of admission: 02/22/24 02:58 Attending physician: Mikel Spencer Consults: 02/22/24 02:59 Consult Physician Routine Consulting Provider: Abhinav Harper Consult Reason/Comments: cva Do you want consulting provider notified?: Yes 02/23/24 10:41 Consult Physician Routine Consulting Provider: Benito Perez Consult Reason/Comments: Eval for IPR Do you want consulting provider notified?: Yes Primary care physician: Stated None Hospital Course: Diagnoses Acute stroke with right hemiplegia and left facial deviation. Secondary to acute left pontine ischemic infarct Fall at home secondary to above New onset diabetes mellitus, type II with hyperglycemia Stenosis right vertebral artery Asthma/COPD, currently not an active issue Hospital course: This is a pleasant 69 years old female with no significant past medical history who presents yesterday because of right-sided weakness, patient says she was sitting in her chair, she could not get up the whole day. Patient states that she peed on herself for time because of that. Patient was found to have acute stroke of the left ede. Patient evaluated by neurology service. Patient started on aspirin, Plavix and Lipitor. Patient remains to have severe right hemiplegia. Currently she is stable and cleared by neurologist to go to subacute rehab Patient further workup showing Send diabetes mellitus with hemoglobin A1c 15. Patient was started on Levemir 15 units, NovoLog 6 units with meals and metformin 500 mg. CTA of the brain showing right vertebral artery partially occluded or critically stenosed at multiple points. Chest x-ray showing cardiomegaly TSH is normal. MRI could not be obtained because she has some left orbital foreign body, we consulted ophthalmology who recommended patient follow-up as an outpatient. Currently patient has no eye pain or blurred vision or any other new complaints She denies chest pain dyspnea or other new complaints Patient cleared by neurologist to to go to inpatient rehab Problems and management plan were discussed with the patient and he verbalized understanding and acceptance Patient was found stable and can be discharged home in guarded prognosis however he needs follow-up as an outpatient. Patient was instructed to follow up with PCP within one week and patient agrees We recommend patient follow-up with neurologist in 2 weeks after discharge, contact information for neurologist D Dr. Gardner is provided. Also patient was instructed to follow-up with custom grinder Dr. Sutherland in 2 weeks and she agrees Physical exam Gen: patient is a AAOx3, no distress CVS: S1-S2, RRR, no murmur Lungs: B/L CTA, no wheezing Abdomen: soft, no distention, no tenderness, positive bowel sounds Extremity: no leg edema or induration -Neuro: Alert awake oriented x 3, severe right hemiplegia with weakness of the right arm and leg, left facial deviation. Meningeal signs absent Time spent more than 35 minutes Patient Condition at Discharge: Fair Plan - Discharge Summary New Discharge Prescriptions: No Action Azithromycin [Zithromax Z Pack] See Taper PO DIRECTED Albuterol Nebulized [Ventolin Nebulized] 2.5 mg INHALATION RT-Q4H Albuterol Inhaler [Ventolin Hfa Inhaler] 1 - 2 puff INHALATION RT-Q4H PRN PRN Reason: Shortness Of Breath Discharge Medication List Albuterol Inhaler [Ventolin Hfa Inhaler] 1 - 2 puff INHALATION RT-Q4H PRN 02/22/24 [History] Albuterol Nebulized [Ventolin Nebulized] 2.5 mg INHALATION RT-Q4H 02/22/24 [History] Azithromycin [Zithromax Z Pack] See Taper PO DIRECTED 02/22/24 [History] Follow up Appointment(s)/Referral(s): Frederick Sutherland MD [STAFF PHYSICIAN] - 2 Weeks Damaris Gardner MD [Medical Doctor] - 1 Week None,Stated [Primary Care Provider] - 1-2 days Discharge/Stand Alone Forms: Area PCPs
[2024-02-25 11:39] LABS: Glucose,Whole Blood 337 mg/dL (70-110)
[2024-02-25] MEDS: PANTOPRAZOLE 40 MG TABLET PO SCH (12:14)
[2024-02-25] MEDS: INSULIN ASPART (NovoLOG) 100 UNIT/ML VIAL SQ SCH (12:14)
[2024-02-25] MEDS: metFORMIN 500 MG TAB PO SCH (12:14)
[2024-02-25] MEDS ORDERED: INSULIN ASPART (NovoLOG) 100 UNIT/ML VIAL SQ SCH (12:30)
--- NOTE | 2024-02-26 11:26 | P.PN ---
Subjective Progress Note Date: 02/25/24 02/25/2024: Patient was seen for follow-up. Offers no new complaints. Continues to have complete right hemiplegia. 02/24/2024: Patient was seen for follow-up. Patient is laying in the bed. Complaining of some aching in the right upper arm and shoulder. Continues to be right hemiplegic. 02/23/2024: Patient was initially seen by Dr. Abhinav Harper. Please refer to his note for details. Patient is a 69-year-old right-handed female who presents with right-sided weakness and slurred speech. Patient has complete right hemiplegia. Patient was not taking any antiplatelet medication at home. Patient has newly diagnosed diabetes. Patient at present is sitting comfortably in the recliner. She continues to have right hemiplegia. Patient states her mother has history of dementia. Some of the workup during this hospital visit consisted of: POC glucose is 382. TSH is 0.972. I reviewed the rest of the lab workup. CT of the head is reported as no acute hemorrhage, hydrocephalus or mass effect. I personally reviewed the CT and feel patient has hypodensity over the left occipital region this seems to be chronic. CT angiography of the head and neck is reported as occluded right proximal SILK BLOCKER. Reconstitution of flow. Moderate stenosis of the left distal SILK BLOCKER. Moderate left ICA stenosis. 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 Partially occluded or critically stenosed right intradural vertebral artery multiple points. Objective - Vital Signs Vital signs: Vital Signs Temp 98.7 F 02/25/24 10:46 Pulse 85 02/25/24 10:46 Resp 16 02/25/24 10:46 BP 126/77 02/25/24 10:46 Pulse Ox 94 L 02/25/24 10:46 FiO2 Intake & Output 02/24/24 02/25/24 02/25/24 18:59 06:59 18:59 Intake Total 180 540 Output Total 800 Balance -620 540 Weight 60 kg Intake: Oral 180 540 Output: Urine 800 Other: Voiding Method External Catheter External Catheter External Catheter # Voids 1 - Exam Patient is an elderly female, who is laying in the recliner in no acute distress. Patient is alert and awake. Speech is mild to moderate dysarthria but no aphasia. Cranial nerves pupils are equal, round and reacting, visual deluna are full, extraocular muscles are intact. Patient has right facial droop, moderate degree, central type, tongue protrudes to the midline, and she has very weak, 0 right shoulder shrug. On muscle strength testing, patient is completely hemiplegic in the right arm and right leg with no movement. The left side is normal. Sensory to touch produced tingling in the right side of the body. Cerebellar functions can be performed on the right. - Labs CBC & Chem 7: 02/24/24 07:24 02/24/24 07:24 Labs: Abnormal Lab Results - Last 24 Hours (Table) 02/24/24 02/24/24 02/25/24 Range/Units 16:39 19:49 05:33 POC Glucose (mg/dL) 270 H 323 H 260 H (70-110) mg/dL 02/25/24 Range/Units 11:37 POC Glucose (mg/dL) 337 H (70-110) mg/dL Assessment and Plan Assessment: * Acute left pontine ischemic infarct, likely due to lacunar stroke. Patient has presented with complete right hemiplegia. Patient's current NIH stroke scale is 12 (related to no movement of the right arm, no movement of the right leg, mild to moderate dysarthria, right facial weakness and right sensory disturbance). * History of old left occipital lobe infarct. On CT angiography she has occluded right proximal SILK BLOCKER, moderate stenosis of the left distal SILK BLOCKER, moderate left ICA stenosis as well as partially occluded stenosis of the right vertebral artery. Unsure time frame but I assume outside the window for TNK and risk outweigh the benefit. 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 * New onset diabetes * Hyperlipidemia * Falls due to recent stroke * Underlying history of asthma and COPD Plan: Patient cannot have MRI of the brain because of presence of some foreign body in the head. CT head revealed redemonstrated age-indeterminate infarct involving the left ede, slightly more pronounced than the prior study from 02/22/2024. I personally reviewed CT head, and is consistent with an evolving acute to subacute infarct in the left ede. Stable remote infarct involving the left occipital lobe with encephalomalacia. Patient probably has a completed stroke, with complete right hemiplegia. Patient will was started on aspirin 325 daily by the ED physician. Prior to this patient was not on any antiplatelet. Dr. Abhinav Harper also added Plavix 75 mg daily with a loading dose of 300 mg once. Recommend continue aspirin and Plavix for 30 days, thereafter stop Plavix and continue aspirin. Patient needs aggressive control of stroke risk factors as mentioned below. 2D echo revealed LVEF 55 to 60%. Normal left ventricular cavity size. Mildly increased septal wall thickness. Mildly increased posterior wall thickness. Normal left atrial size. No atrial thrombus. Mild mitral annular calcification. Lipid panel with cholesterol 222, LDL 113, HDL 28 and triglycerides 400. Agree with starting high intensity statins with Lipitor 80 mg. Patient was not on any statins at home. Hemoglobin A1c 15.6. This is suggestive of very poorly controlled diabetes. Recommend optimize control of diabetes to target A1c < 7.0. EEG was abnormal due to presence of background slowing, suggestive of mild encephalopathy. No focal, lateralized or epileptiform activity was seen. PT OT and COMPOSITE ENGINEER are consulted Optimize control of blood pressure. Patient candidate for inpatient rehabilitation. For DVT prophylaxis the patient is on subcu heparin. Neurologically clear for transfer to inpatient rehab, when medically cleared. Patient recommended to follow-up with Dr. Hines outpatient for possible cerebral aneurysm. Referral recommendation placed in discharge instructions. Also discussed with patient.
== END 2024-02-25 13:58 | DRG 65 ==
LOC: EC 23:46 → 3SCARD 02-22 02:58
PROVIDERS: ADMIT Hospitalist; ATTEND Hospitalist
PROC: 4A00X4Z Measurement of Central Nervous Electrical Activity, External Approach (ICD-10-PCS; principal; 2024-02-23)
DX: I63.81 Other cerebral infarction due to occlusion or stenosis of small artery (principal); G81.01 Flaccid hemiplegia affecting right dominant side; G93.49 Other encephalopathy; I65.22 Occlusion and stenosis of left carotid artery; I65.01 Occlusion and stenosis of right vertebral artery; G93.89 Other specified disorders of brain; R29.712 NIHSS score 12; R47.1 Dysarthria and anarthria; R29.810 Facial weakness; J44.89 Other specified chronic obstructive pulmonary disease; G25.81 Restless legs syndrome; E11.65 Type 2 diabetes mellitus with hyperglycemia; R29.705 NIHSS score 5; R20.2 Paresthesia of skin; E78.5 Hyperlipidemia, unspecified; Z91.81 History of falling; Z79.4 Long term (current) use of insulin; Z79.02 Long term (current) use of antithrombotics/antiplatelets; Z79.82 Long term (current) use of aspirin; Z79.84 Long term (current) use of oral hypoglycemic drugs; Z79.899 Other long term (current) drug therapy; Z86.73 Personal history of transient ischemic attack (TIA), and cerebral infarction without residual deficits; Z88.6 Allergy status to analgesic agent; Z88.0 Allergy status to penicillin; Z88.2 Allergy status to sulfonamides
CPT/HCPCS: 36415; 70030; 70450; 70496; 70498; 71045; 72170; 80048; 80053; 80061; 81001; 83036; 83605; 83735; 83880; 84100; 84443; 84484; 85025; 85610; 85730; 93005; 93306; 95819; 96360; 96361; 99291